=== PATIENT | male | born 1950 | race Caucasian/White ===

== ENCOUNTER 2017-08-22 22:18 | Inpatient (IN) ==
[2017-08-23] MEDS ORDERED: Naloxone 0.4 MG/ML INJ IVP PRN ×2 (01:33→20:30)
[2017-08-23] MEDS ORDERED: *HR* Morphine 2 MG/ML SYRINGE IVP PRN ×2 (02:01→20:30)
--- NOTE | 2017-08-23 02:05 | Internal Med History&Physical ---
Date of Encounter: 08/23/17 Time of Encounter: 02:00 Assessment and Plan (1) Fracture of femoral neck, right Current visit: No Status: Acute Consult to Ortho in AM for likely R hemiarthroplasty as add-on pt. Consult to PT/OT. Pre-op risk stratification: Low risk patient. Anesthesia may note cervical disc fusion history though patient exhibits good extension/flexion. VSS, stable H&H. 12 lead ordered. NPO. Maintenance fluids. Pain management. Qualifiers: Encounter type: initial encounter Fracture type: closed Qualified Code(s) : S72.001A - Fracture of unspecified part of neck of right femur, initial encounter for closed fracture (2) DVT prophylaxis Current visit: Yes Status: Acute Intermittent pneumatic compression, pre-op. Internal Medicine - H&P: HPI Chief complaint: R hip pain Admitted From: Emergency Dept Plans for Post Hospital Care: Transfer Detention Facility History of present illness: Mr. Atwood is a 67 year old male, PMH c3-c6 fusion, bilateral knee replacement, no cardiac/stroke history, presents to ED evening 08/22 after fall on R hip on concrete after friend tripped him. Patient comes from outpatient where XR performed, showing R femoral neck fracture. Denies loss of consciousness, contusion of other body parts. No active bleed. Reports severe pain in R hip. No n/v, chest pain, shortness of breath. 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 Past Med Surg Social Fam HX - Past Medical History Medical history: arthritis, hyperlipidemia, hypertension Psychiatric history: no psych history - Social History Smoking Status: Never smoker Smokeless Tobacco Status: No Alcohol use: occasionally Drug use: none - Family History Father Living Status: Cause of : CHF Hx Family Cardiac Disorders: Yes (CHF) Mother Living Status: Hx Family Cancer: Yes (Lung cancer) Internal Medicine - H&P: Meds Mv-Mn/FA/Lycopene/Lut/Hb#178 [Bertrand Multivit For Men Caplet] 1 each PO DAILY 09/18 [History] [place]-3/Dha/Epa/Fish Oil [Fish Oil 1,000 mg Softgel] 1,000 mg PO DAILY 10/03/16 [History] 3 Allergy/AdvReac Type Severity Reaction Status Date / Time shellfish derived Allergy Anaphylaxis Verified 08/22/17 21:27 All Systems PM: A 10-system review of systems was performed and is negative for pertinent findings except as documented above in the HPI. - Constitutional Vitals: Temp Pulse Resp BP Pulse Ox 97.6 F 77 16 158/83 92 08/23/17 00:41 08/23/17 00:41 08/23/17 00:41 08/23/17 00:41 08/23/17 00:41 General appearance: Present: mild distress, A&O X 3 - Head Head exam: Present: atraumatic, normal inspection - Eye Eye exam: Present: EOMI, normal appearance - Neck Additional comments: s/p cervical fusion; no observed limitation to active ROM in flexion and extension - Respiratory Respiratory exam: Present: CTAB - Cardiovascular Cardiovascular exam: Present: RRR, +S1, +S2 - Extremities Exam Additional comments: anatomic short leg R; decreased ROM 2/2 pain/fracture, normal dorsalis pedis pulse bilaterally, no paresthesias distally Internal Med - H&P Results - Labs CBC & Chem 7: 08/23/17 01:48 - VTE Reasons for not Prescribing Prophylaxis: Medical contraindication
[2017-08-23] MEDS ORDERED: Acetaminophen 325 MG TABLET PO PRN ×2 (02:14→20:30)
[2017-08-23] MEDS ORDERED: Ondansetron ODT 4 MG TAB.RAPDIS SL PRN ×2 (02:14→20:30)
[2017-08-23] MEDS ORDERED: Ibuprofen 400 MG TABLET PO PRN ×2 (02:14→20:30)
[2017-08-23 03:06] LABS: BUN/Creatinine Ratio 19 (6-26); Blood Urea Nitrogen 20 mg/dL (8-23); Calcium 8.8 mg/dL (8.6-10.3); Carbon Dioxide 26 mEq/L (23-29); Chloride 106 mEq/L (98-107); Glucose 96 mg/dL (70-105); Osmolality,Calculated 290 (280-300); Potassium 3.7 mEq/L (3.5-5.1); Sodium 139 mEq/L (136-145); eGFR For African Americans > 60 (> 60); eGFR For Non-African Americans > 60 (> 60)
[2017-08-23 04:32] LABS: Basophils % 0.3 %; Eosinophils # 0.2 K/mcL (0.0-0.6); Eosinophils % 1.6 %; Hematocrit 42.8 % (37.5-50.1); Hemoglobin 14.5 g/dL (12.9-16.9); Immature Granulocytes % 0.5 % (0-4); Lymphocytes # 1.1 K/mcL (0.6-4.6); Lymphocytes % 11.5 %; Mean Corpuscular HGB Conc 33.9 g/dL (31.6-35.5); Mean Corpuscular Hemoglobin 29.2 pg (28.0-33.3); Mean Corpuscular Volume 86.3 fL (83.0-100.0); Mean Platelet Volume 10.4 fL (9.4-12.4); Monocytes # 0.7 K/mcL (0.0-1.3); Monocytes % 7.5 %; Neutrophils # 7.6 K/mcL (1.6-8.9); Platelet Count 167 K/mcL (140-400); Red Blood Count 4.96 M/mcL (4.19-5.50); Red Cell Distribution Width 12.4 % (11.5-14.5); Segmented Neutrophils % 78.6 %
[2017-08-23] MEDS: 0.9 % Sodium Chloride 1,000 ML IVC SCH ×3 (05:21→22:39)
[2017-08-23] MEDS: *HR* HYDROmorphone (PF) 1 MG/ML SYRINGE IVP PRN ×3 (05:29→14:08)
--- NOTE | 2017-08-23 08:12 | Orthopedic Consult Note ---
Date of Encounter: 08/23/17 Time of Encounter: 08:09 History of Present Illness HPI: Mr. Atwood is a 67 year old male Status post injury to right hip yesterday while sparring. Patient was seen [facility] x-rays showed a displaced femoral neck fracture.The patient was transferred to [facility] For treatment He denies head trauma or loss of consciousness. 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 Patient is very active. Physical exam Alert and oriented 3 Right lower extremity Neurovascular intact Shortened external rotated X-rays show displaced right femoral neck fracture. Based on the patient's age and activity level recommendation is for a right total hip replacement versus a hemiarthroplasty. This was discussed at length with the patient as well as the surgical approach. This will be robotic- assisted the patient will have a CT scan this morning preop planning. Risks and benefits as well as recovery were discussed with the patient. Past Med Surg Social Fam HX - Past Medical History Medical history: arthritis, hyperlipidemia, hypertension Psychiatric history: no psych history - Social History Smoking Status: Never smoker Smokeless Tobacco Status: No Alcohol use: occasionally Drug use: none - Family History Father Living Status: Cause of : CHF Hx Family Cardiac Disorders: Yes (CHF) Mother Living Status: Hx Family Cancer: Yes (Lung cancer) Medications and Allergies Mv-Mn/FA/Lycopene/Lut/Hb#178 [Bertrand Multivit For Men Caplet] 1 each PO DAILY 09/18 [History] [place]-3/Dha/Epa/Fish Oil [Fish Oil 1,000 mg Softgel] 1,000 mg PO DAILY 10/03/16 [History] 3 Allergy/AdvReac Type Severity Reaction Status Date / Time shellfish derived Allergy Anaphylaxis Verified 08/22/17 21:27 All Systems Reviewed: A 10-system review of systems was performed and is negative for pertinent findings except as documented above in the HPI. Physical Exam - Constitutional Vitals: Temp Pulse Resp BP Pulse Ox 97.6 F 77 16 158/83 92 08/23/17 00:41 08/23/17 00:41 08/23/17 00:41 08/23/17 00:41 08/23/17 00:41 Results - Labs Result Diagrams: 08/23/17 04:13 08/23/17 01:48 Labs: H & H 08/23/17 Range/Units 04:13 Hgb 14.5 (12.9-16.9) g/dL Hct 42.8 (37.5-50.1) % All other labs normal. Consult Discharge Plan - Plan Referrals: Clarisa Torres CNP [Primary Care Provider] -
--- NOTE | 2017-08-23 14:43 | Event Note ---
Date of Encounter: 08/23/17 Time of Encounter: 14:41 67/male Past medical history of for cervical spine fusion, bilateral knee replacement, No cardiac history/no pulmonary history. Came to emergency room on 08/22 with the fall. Right femoral neck fracture. Admitted to hospitalist service. Orthopedics on the board. Plan: I was told that patient will be going for surgery tomorrow. We will follow the recommendations from orthopedics.
[2017-08-23] MEDS ORDERED: *HR* HYDROmorphone (PF) 1 MG/ML SYRINGE IVP ONE (14:50)
--- NOTE | 2017-08-23 16:30 | Anesthesia Evaluation PreOp ---
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 Significant HX Other Medical History: Denies Any Significant HX Anesthesia History: No Prior Anesthetic Complications, Past Anesthesia (C3-6 fusion) Alcohol Use: occasionally Drug use: none Medications and Allergies Mv-Mn/FA/Lycopene/Lut/Hb#178 [Bertrand Multivit For Men Caplet] 1 each PO DAILY 09/18 [History] [place]-3/Dha/Epa/Fish Oil [Fish Oil 1,000 mg Softgel] 1,000 mg PO DAILY 10/03/16 [History] 3 Allergy/AdvReac Type Severity Reaction Status Date / Time shellfish derived Allergy Anaphylaxis Verified 08/22/17 21:27 - Meds/Allergy Pre-op Review Medications Reviewed: Yes Allergies Reviewed: Yes Beta Blockers on Current Med List: No Anesthesia Results - Labs 08/23/17 04:13 08/23/17 01:48 Anesthesia Exam Vital Signs/O2 Sat, Most Current Temp Pulse Resp BP Pulse Ox 99.9 F H 71 18 147/84 93 08/23/17 15:13 08/23/17 15:13 08/23/17 15:13 08/23/17 15:13 08/23/17 15:13 Height: 6'/1.83 m Weight: 224 lbs/101.6 kg NPO (# of Hours): 8 Pain Scale: 0 Pain Scale Used: Numeric (1 - 10) - HEENT Pupil (Motor): EOMI Mallampati: II Teeth: Normal, Missing Oral Opening: Greater than 3 - OUTSIDE INSTALLER APPRENTICE LOC: Oriented OUTSIDE INSTALLER APPRENTICE Motor: Normal RUE, Normal LUE, Normal RLE, Normal LLE, Normal Face OUTSIDE INSTALLER APPRENTICE Sensory: Normal: RUE, LUE, RLE, LLE, Face - Cardiac Rhythm: Regular Murmur: None - Pulmonary Breath Sounds: bilateral Clear Respiratory Effort: Symmetrical Anesthesia Assess/Plan ASA Score: 2 Modified Palmer Scale for Level of Consciousness: Cooperative, oriented, and tranquil Anesthetic Plan: General Monitoring Plan: Standard Monitors Recovery Plan: PACU
[2017-08-23] MEDS ORDERED: *HR* FentaNYL (PF) 100 MCG/2 ML VIAL ONE ×2 (17:43→18:21)
[2017-08-23] MEDS ORDERED: *HR* Midazolam HCl 2 MG/2 ML VIAL ONE (17:44)
[2017-08-23] MEDS ORDERED: *HR* Propofol 200 MG/20 ML VIAL IVP ONE (17:44)
[2017-08-23] MEDS ORDERED: Ethanol\\Acetic Acid\\Na Ace\\Ben 1,000 ML IRRIG.SOLN IR ONE (17:45)
[2017-08-23] MEDS ORDERED: Ketorolac 30 MG/ML VIAL ONE (17:47)
[2017-08-23] MEDS ORDERED: Dexamethasone 4 MG/ML VIAL ONE (17:47)
[2017-08-23] MEDS ORDERED: *HR* Succinylcholine 200 MG/10 ML VIAL IVP ONE (17:47)
[2017-08-23] MEDS ORDERED: *HR* Rocuronium Bromide 50 MG/5 ML VIAL ONE (17:47)
[2017-08-23] MEDS ORDERED: Lidocaine -MPF 2% 2 ML VIAL ONE (17:47)
[2017-08-23] MEDS ORDERED: Ondansetron 4 MG/2 ML VIAL ONE (17:47)
[2017-08-23] MEDS ORDERED: EPHEDrine 50 MG/ML VIAL ONE (18:08)
[2017-08-23] MEDS ORDERED: *HR* HYDROmorphone (PF) 1 MG/ML SYRINGE IVP PRN ×2 (18:24→20:30)
[2017-08-23] MEDS ORDERED: Ondansetron 4 MG/2 ML VIAL IVP ONE (18:24)
--- NOTE | 2017-08-23 19:16 | Orthopedic Operative Note ---
Date of procedure: 08/23/17 Pre-op diagnosis: Displaced right femoral neck fracture Post-op diagnosis: same Procedure: Procedure: Right Total Hip Replacment robotic-assisted Estimated blood loss: 200 cc Hardware: Metal and polyethylene replacement. [employer] DM Cup: 56 cup Femoral size stem 11 Head: 0 head with Jaci Procedural Notes: Displaced femoral neck fracture. Operative procedure: The patient was brought to the operating room and placed on the operating room table. After general anesthesia was administered the patient was placed in the lateral decubitus position with the operative leg up. All pressure points were padded appropriately and the head was stabilized in the neutral position. The operative extremity was prepped and draped in the sterile surgical fashion patient received IV antibiotic prior to skin incision. 3 Steinmann pins were placed in the iliac crest 3 cm proximal to the anterior superior iliac spine this was for the robotic-assisted sensor. This was done through a small 2 cm incision. A standard posterior approach is made to the operative hip, the incision was made through the skin and subcutaneous tissue hemostasis was obtained with Bovie cautery. Using careful sharp dissection the fascia was identified and incised exposing the external rotators. The femoral checkpoint was placed leg length was measured at this time utilizing robotic assistance. The external rotators were released off the greater trochanter and tagged with # 2 FiberWire suture. The capsule was T'd open and the hip was brought into internal rotation. Patient had a displaced femoral neck fracture. The femoral head was removed and neck cut was made approximately 2 mm below the fracture line. An anterior capsulotomy was performed for the anterior retractor. Soft tissues removed from the acetabulum. The acetabulum checkpoint was placed confirmed. The acetabulum was then mapped with robotic assistance. Based on the preoperative plan the acetabulum was reamed in one step with a 55 reamer. The 56 acetabulum was impacted with robotic assistance and 42 degrees of abduction and 19 degrees of anteversion. The hip was brought back in to internal rotation and prepared with the box stamper followed by the canal finder followed by the reaming process to a size 11 /12 broaching process in 20 degrees anteversion. It was broached up to the appropriate size 11. Trial reduction revealed leg lengths close to normal. The femoral implant was impacted in place in 20 degrees of anteversion. Trial reduction found the hip to be stable with 0 head and Jaci. The trials were removed and the real implants were impacted in place. The hip was reduced, patient had robotic confirmed leg length of 3 mm longer than the contralateral side. The hip had excellent stability with forward flexion to 90 degrees adduction of 30 degrees and internal rotation of 60 degrees. The hip had no shuck. The hips after 2 minutes with a Betadine saline solution. It was irrigated out with 2 L of pulse irrigation. The checkpoints were removed, Steinmann pins were removed. The deep tissue was irrigated and closed deep with #1 PDS suture superficially with 0 PDS suture and skin was closed with Dermabond and zip tie. The patient was placed in a sterile dressing and abduction pillow. The patient was extubated and transferred to the recovery room in stable condition. Anesthesia: GETA Surgeon: Anthony Cheng Condition: stable Disposition: PACU
[2017-08-23] MEDS ORDERED: *HR* HYDROmorphone 2 MG/ML SYRINGE ONE (19:17)
[2017-08-23 19:48] LABS: Hemoglobin 13.7 g/dL (12.9-16.9)
--- NOTE | 2017-08-23 20:01 | Anesthesia Evaluation Post Op ---
Date of Encounter: 08/23/17 Time of Encounter: 20:01 - Vital Signs Vital Signs: vss - Lungs Lungs: Clear Ascult./Percussion - Airway Airway: Non-obstructed - Cardiovascular Baseline Rhythm - Mental Status Mental Status: Asleep with brisk response to light stimulation - Pain Pain Scale used: Rossy (Faces) - Nausea Vomiting Nausea Vomiting: Not Present - Hydration Hydration: Ice chips - Discharge PostOp Status: Transfer Patient to floor
[2017-08-23] MEDS ORDERED: *HR* OxyCODONE Immed Rel 5 MG TABLET PO PRN (20:30)
[2017-08-23] MEDS ORDERED: MOM Conc 10 ML UD.LIQ PO PRN (20:30)
[2017-08-23] MEDS ORDERED: Sennosides 8.6 MG TABLET PO PRN (20:30)
[2017-08-23] MEDS ORDERED: Ondansetron 4 MG/2 ML VIAL IVP PRN (20:30)
[2017-08-23] MEDS ORDERED: Temazepam 15 MG CAPSULE PO PRN (20:30)
[2017-08-23] MEDS: CeFAZolin Premix DUPLEX 2,000 MG/50 ML BAG IVPB SCH (23:57)
[2017-08-24 01:36] LABS: Hematocrit 37.5 % (37.5-50.1); Hemoglobin 12.7 g/dL (12.9-16.9)
[2017-08-24 01:55] LABS: BUN/Creatinine Ratio 17 (6-26); Blood Urea Nitrogen 22 mg/dL (8-23); Calcium 8.2 mg/dL (8.6-10.3); Carbon Dioxide 27 mEq/L (23-29); Chloride 104 mEq/L (98-107); Glucose 179 mg/dL (70-105); Osmolality,Calculated 290 (280-300); Potassium 3.9 mEq/L (3.5-5.1); Sodium 136 mEq/L (136-145); eGFR For African Americans > 60 (> 60); eGFR For Non-African Americans 56 (> 60)
[2017-08-24] MEDS: 0.9 % Sodium Chloride 1,000 ML IVC SCH ×2 (06:13→17:38)
--- NOTE | 2017-08-24 06:46 | Orthopedics Progress Note ---
Date of Encounter: 08/24/17 Time of Encounter: 06:45 Subjective Interval history: Patient was seen this morning doing well without complaints. Afebrile vital signs stable. Operative extremity: Neurovascularly intact Dressing clean dry and intact Calves nontender Assessment and plan: Continue with postoperative care Hematocrit 37 Objective Vital signs: Vital Signs Temp Pulse Resp BP Pulse Ox 08/24/17 05:25 99.1 F 79 14 117/69 97 08/24/17 00:02 98.5 F 86 16 113/77 95 08/23/17 22:30 98.2 F 83 20 117/79 93 08/23/17 21:30 98.2 F 89 18 117/79 95 08/23/17 21:00 99.2 F 84 18 127/76 95 08/23/17 20:30 98.7 F 85 16 112/79 94 08/23/17 19:56 100 F H 87 14 122/76 96 08/23/17 19:46 89 14 132/78 96 08/23/17 19:35 92 14 117/78 96 08/23/17 19:25 100 F H 91 16 127/69 95 08/23/17 15:13 99.9 F H 71 18 147/84 93 08/23/17 12:20 97.9 F 76 16 154/81 94 08/23/17 08:51 98.8 F 75 16 124/71 94 Intake and Output 08/23/17 08/23/17 08/24/17 15:59 23:59 07:59 Intake Total 1000 / 1000 1050 / 1050 Output Total 400 / 400 200 / 200 300 / 300 Balance 600 / 600 -200 / -200 750 / 750 Intake: IV Fluids 1000 / 1000 1050 / 1050 0.9 % Sodium Chloride 1,000 ML 1000 / 1000 1000 / 1000 @ 125 mls/hr IVC .Q8H ROMANA Rx#: [id number] Ancef Premix DUPLEX 2,000 mg In 50 / 50 50 ml @ 100 mls/hr IVPB Q8HR ROMANA Rx#:[id number] Oral 0 / 0 Output: Urine 400 / 400 300 / 300 Estimated Blood Loss 200 / 200 Other: Meal NPO Percent of Meal Consumed 0% - Labs CBC & BMP: 08/24/17 00:53 08/24/17 00:53 Labs: Abnormal lab results Hgb 12.7 g/dL (12.9-16.9) L 08/24/17 00:53 Est GFR (Non-Af Amer) 56 (> 60) L 08/24/17 00:53 Glucose 179 mg/dL (70-105) H 08/24/17 00:53 Calcium 8.2 mg/dL (8.6-10.3) L 08/24/17 00:53 - VTE Reasons for not Prescribing Prophylaxis: Medical contraindication Documentation of Mechanical Device: Intermittent pneumatic compression device Consult Discharge Plan - Plan Referrals: Clarisa Torres, TU[employer] P[employer]ER [Primary Care Provider] -
[2017-08-24] MEDS: Ascorbic Acid 500 MG TABLET PO SCH ×2 (08:35→17:36)
[2017-08-24] MEDS: CeFAZolin Premix DUPLEX 2,000 MG/50 ML BAG IVPB SCH (08:36)
[2017-08-24] MEDS: Multivit/Ca/Min/Fe/FA 1 TAB TABLET PO SCH (08:36)
[2017-08-24] MEDS: *HR* OxyCODONE Immed Rel 5 MG TABLET PO PRN ×3 (08:36→17:36)
[2017-08-24] MEDS: Ringers Solution, Lactated 1,000 ML IVC SCH (08:37)
--- NOTE | 2017-08-24 13:59 | Internal Med Progress Note ---
Date of Encounter: 08/25/17 Time of Encounter: 13:57 - Assessment and plan (1) Fracture of femoral neck, right Current Visit: No Status: Acute Assessment and plan: 67/male right femur neck fracture. Postoperative day one. Patient tolerated surgery/postoperative course very well so far. Bilateral pulses intact. Bilateral sensation intact. Bilateral calves nontender. No bloodstained dressing. Plan: We will follow the recommendations from the orthopedics. Qualifiers: Encounter type: subsequent encounter Fracture type: closed Fracture healing: with routine healing Qualified Code(s): S72.001D - Fracture of unspecified part of neck of right femur, subsequent encounter for closed fracture with routine healing (2) DVT prophylaxis Current Visit: Yes Status: Acute - Subjective Interval history: Patient seen and examined. Chart reviewed. Patient is comfortably sitting up in a chair. 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 Patient tells me that he is occasionally in pain but pain is tolerable. Patient is keen to go home tomorrow. - Constitutional Vitals: Temp Pulse Resp BP Pulse Ox 98.8 F 84 18 128/67 94 08/24/17 11:55 08/24/17 11:55 08/24/17 11:55 08/24/17 11:55 08/24/17 08:08 General appearance: Present: mild distress, A&O X 3 - Head Head exam: Present: atraumatic, normocephalic - Eye Eye exam: Present: PERRL, conjuntiva pink, sclera anicteric Pupils: Present: PERRL - Neck Neck exam general surgery: Present: supple, trachea midline. Absent: lymphadenopathy - Respiratory Respiratory exam: Present: CTAB. Absent: accessory muscle use, rales, rhonchi, wheezes - Cardiovascular Cardiovascular exam: Present: RRR, +S1, +S2. Absent: diastolic murmur, gallop, rubs, systolic murmur - GI/Abdominal GI/Abdominal exam: Present: normal bowel sounds, soft, no peritoneal signs. Absent: distended, tenderness - Extremities Exam Extremities exam: Present: warm, radial pulses palpable and symmetrical. Absent : calf tenderness, cyanotic, pedal edema - Neurological Exam Neurological exam: Present: CN II-XII intact, oriented X3, no focal deficits. 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 D/ / Bryn White MD / Bryn White MD Interpreting Provider: Bryn White MD - VTE Reasons for not Prescribing Prophylaxis: Medical contraindication Documentation of Mechanical Device: Intermittent pneumatic compression device Consult Discharge Plan - Plan Referrals: Clarisa Torres CNP [Primary Care Provider] - Prescriptions: OxyCODONE Immed Rel [Roxicodone 5 MG] 5 mg PO Q4HR PRN #24 tablet PRN Reason: Pain Aspirin Enteric Coated [Aspirin EC] 325 mg PO BID #20 tablet.
[2017-08-25] MEDS: *HR* OxyCODONE Immed Rel 5 MG TABLET PO PRN ×2 (01:16→12:34)
[2017-08-25 01:25] LABS: Basophils % 0.2 %; Eosinophils # 0.1 K/mcL (0.0-0.6); Eosinophils % 0.8 %; Hematocrit 29.7 % (37.5-50.1); Immature Granulocytes % 0.4 % (0-4); Lymphocytes # 1.2 K/mcL (0.6-4.6); Lymphocytes % 13.2 %; Mean Corpuscular HGB Conc 34.7 g/dL (31.6-35.5); Mean Corpuscular Hemoglobin 30.1 pg (28.0-33.3); Mean Corpuscular Volume 86.8 fL (83.0-100.0); Mean Platelet Volume 10.4 fL (9.4-12.4); Monocytes # 1.1 K/mcL (0.0-1.3); Monocytes % 11.6 %; Neutrophils # 6.7 K/mcL (1.6-8.9); Platelet Count 135 K/mcL (140-400); Red Blood Count 3.42 M/mcL (4.19-5.50); Red Cell Distribution Width 12.4 % (11.5-14.5); Segmented Neutrophils % 73.8 %
[2017-08-25 01:43] LABS: Alanine Aminotransferase 20 Units/L (7-52); Albumin 3.3 g/dL (3.5-5.7); Albumin/Globulin Ratio 1.4 (1.1-2.2); Alkaline Phosphatase 44 Units/L (34-104); Aspartate Amino Transferase 49 Units/L (13-39); BUN/Creatinine Ratio 18 (6-26); Blood Urea Nitrogen 18 mg/dL (8-23); Calcium 7.9 mg/dL (8.6-10.3); Carbon Dioxide 26 mEq/L (23-29); Chloride 103 mEq/L (98-107); Globulin 2.3 g/dL (2.4-3.5); Glucose 135 mg/dL (70-105); Osmolality,Calculated 282 (280-300); Potassium 3.8 mEq/L (3.5-5.1); Sodium 134 mEq/L (136-145); Total Protein 5.6 g/dL (6.4-8.9); eGFR For African Americans > 60 (> 60); eGFR For Non-African Americans > 60 (> 60)
[2017-08-25 02:18] LABS: Hemoglobin 10.3 g/dL (12.9-16.9)
[2017-08-25] MEDS ORDERED: Multivit/Ca/Min/Fe/FA 1 TAB TABLET PO SCH (09:00)
[2017-08-25] MEDS ORDERED: (Omega-3/Dha/Epa/Fish Oil [Fish Oil 1,000 Mg Softgel]) PO SCH (09:00)
[2017-08-25] MEDS: Multivit/Ca/Min/Fe/FA 1 TAB TABLET PO SCH (10:23)
[2017-08-25] MEDS: Ascorbic Acid 500 MG TABLET PO SCH (10:23)
--- NOTE | 2017-08-25 10:31 | Discharge Summary ---
Date of Encounter: 08/26/17 Time of Encounter: 10:27 - Discharge Diagnosis (1) Fracture of femoral neck, right Priority: Primary Status: Acute Qualifiers: Encounter type: subsequent encounter Fracture type: closed Fracture healing: with routine healing Qualified Code(s): S72.001D - Fracture of unspecified part of neck of right femur, subsequent encounter for closed fracture with routine healing (2) DVT prophylaxis Priority: Secondary Status: Acute - Discharge Medications Prescriptions: OxyCODONE Immed Rel [Roxicodone 5 MG] 5 mg PO Q4HR PRN #24 tablet PRN Reason: Pain Aspirin Enteric Coated [Aspirin EC] 325 mg PO BID #20 tablet. Home Medications: Mv-Mn/FA/Lycopene/Lut/Hb#178 [Bertrand Multivit For Men Caplet] 1 each PO DAILY 09/18 [History] [place]-3/Dha/Epa/Fish Oil [Fish Oil 1,000 mg Softgel] 1,000 mg PO DAILY 10/03/16 [History] Aspirin Enteric Coated [Aspirin EC] 325 mg PO BID #20 tablet. 08/24/17 [Rx] OxyCODONE Immed Rel [Roxicodone 5 MG] 5 mg PO Q4HR PRN #24 tablet 08/24/17 [Rx] Allergies/Adverse Reactions: 3 Allergy/AdvReac Type Severity Reaction Status Date / Time shellfish derived Allergy Anaphylaxis Verified 08/22/17 21:27 Procedures/tests Complete & Pending: Procedures Performed prior 72 hours Category Date Time Status CT FLORES hip rt wo con [CT] Stat Exams 08/23/17 08:46 Draft ECG 12 lead ECG [ECG] Routine Y 08/23/17 02:11 Stop Req Date of admission: 08/23/17 05:46 Primary care physician: Clarisa Torres CNP Consults: 08/23/17 02:16 Consult to Occupational Therapy [CONS] Routine Comment: Evaluate, develop and implement POC Reason for Consult: R hip fx Consult to Physical Therapy [CONS] Routine Comment: Evaluate, develop and implement POC Reason for Consult: R hip fx 08/23/17 03:15 Consult to Orthopedic Surgery [CONS] Routine Consulting Provider: Orthopedics [facility] Reason for Consult: R hip fracture Call Completed: No 08/23/17 20:30 Consult to Nurse Navigator [CONS] Routine Comment: ortho navigator Consult to Occupational Therapy [CONS] Routine Comment: Evaluate, develop and implement POC Reason for Consult: total hip replacement Consult to Physical Therapy [CONS] Routine Comment: Evaluate, develop and implement POC Reason for Consult: total hip replacement Consult to Station Superintendent [CONS] Routine Reason for SW Consult: post op joint replacement RT Post Op Consult [CONS] Routine Discharging clinician: Darren Reynolds - Patient Status Disposition: Home, Self-Care Condition: Good Functional capacity at discharge: uses cane/walker Overall status at discharge: patient is progressing back to baseline - Discharge Instructions Follow Up With: Clarisa Torres CNP [Primary Care Provider] - Anthony Cheng MD [Partnered Physician] - Additional Instructions: Discharge Instructions: Total Hip Replacement Please call [facility] ([phone]), your Primary Care Physician, or report to the Emergency Room if you have any of the following symptoms: Nausea, vomiting, fever greater that 101.5, swelling, chest pain, shortness of breath, increased pain/redness/drainage/odor for your incision site, numbness/ tingling, or any other concerning symptoms. ACTIVITY:Weight-bearing as tolerated for 8 weeks with hip dislocation precautions that physical therapy taught you. You may progress as tolerated under the guidance of your physical therapist. You do not need to sleep with a pillow between your legs. You can also seep on the operative side or on your stomach. MEDICATIONS: Upon discharge resume your home medications. Take all the medications as prescribed. Take a stool softener if taking narcotic pain medications. Stool softeners are only effective if you drink enough fluids. Drink 6-8 glass of water or fluids a day, unless this is not allowed for another health problem. Despite using stool softeners, if you haven't had a bowel movement in 3 days, please switch to a gentle laxative. Gentle laxatives are sold over the counter. You should have a bowel movement within 24 hours, if not call the office. You will be discharged from the hospital with a prescription for pain medication. You are encouraged to decrease the use of narcotic pain medication as tolerated. Should you require a refill, please call the office. [facility] prescribes narcotic pain medication for only 4-6 weeks after surgery. If you require pain medication beyond this time period, you may be referred to your Primary Care Physician or to the Pain Clinic for further evaluation. Plan ahead for refills on pain medication as many narcotics either need to be picked up at the office or mailed. It is best to call 48-72 hours in advance of needing a prescription refill so you don't run out of medication. To help control the post-operative pain, you may take NSAIDs (Aleve,Advil, Motrin, ibuprofen, naprosyn) or Tylenol as prescribed on the bottle in addition to the pain medication. ANTICOAGULATION (blood thinners): Continue your Aspirin, Lovenox or Coumadin as prescribed to help prevent a blood clot in the leg or in the lungs. As long as your incision remains dry and you tolerate the NSAIDs (Aleve, Advil, Motrin, Ibuprofen, Naprosyn), it is OK to use the NSAIDS while you are taking your anticoagulation medication. Should your incision start to drain, stop the NSAID and contact our office. Common symptoms of blood clot in the legs include: localized pain, swelling, calf tenderness, redness or discoloration of the skin. Blood clot in the lung symptoms include: shortness of breath, rapid pulse, sweating, and chest pain that worsens with deep breathing, coughing up blood, lightheadedness, feelings of anxiety. If you experience any of these symptoms notify your physician immediately, go to the emergency room, or if having trouble breathing, call 911. WOUND CARE: Leave the dressing on for 7 to 10days. You may change the dressing if it is saturated greater than 50%. Do not get the dressing wet at anytime. Wash your hands with antibacterial soap, rinse and dry prior to any wound care. If you have willy the visiting nurse or rehab facility can remove the stapes 10-14 days after surgery and place steri-strips across the wound. Leave the steri-strips in place until they fall off on their own. You may let water from the shower run on top of the steri-strips. If you do not have a visiting nurse or rehab facility, you will need to return to the office at 10-14 days for the willy to be removed. If you have itching or redness around the dressing call the office. FOLLOW-UP: Please follow up with your surgeon in the orthopedic clinic in 6 weeks from the day of surgery. If you have willy that need to be removed, you will need to come back to the office in 10-14 days from the day of surgery. - Diet and Activity Activity: as per physical therapy Diet: low fat, low cholesterol, low salt diet Interval History: Mr. Atwood is a 67 year old male, PMH c3-c6 fusion, bilateral knee replacement, no cardiac/stroke history, presents to ED evening 08/22 after fall on R hip on concrete after friend tripped him. Patient comes from outpatient where XR performed, showing R femoral neck fracture.Denies loss of consciousness, contusion of other body parts. No active bleed. Reports severe pain in R hip. 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 Hospital course: Patient was hospitalized. Orthopedics were consulted. Patient underwent a right hip surgery. Patient tolerated surgery and post surgical recovery extremely well. Patient was seen by orthopedic surgeon postoperatively on the Day1 and Day2. As per orthopedic surgery patient can go home today. DVT prophylaxis as prescribed by orthopedics. Follow-up appointment with primary care in 1-2 weeks. Follow-up appointment with orthopedics at [place] in one to 2 weeks. Plan of care discussed with the patient he verbalized understanding. At the time of discharge patient does not have any questions, concerns, update or recommendations. - Time Spent with Patient Total time spent providing and/or coordinating discharge services: - Constitutional Vitals: Temp Pulse Resp BP Pulse Ox 99.8 F H 96 18 133/68 97 08/24/17 23:56 08/24/17 23:56 08/24/17 23:56 08/24/17 23:56 08/24/17 23:56 General appearance: Present: mild distress, A&O X 3 - Head Head exam: Present: atraumatic, normocephalic - Eye Eye exam: Present: PERRL, conjuntiva pink, sclera anicteric Pupils: Present: PERRL - Neck Neck exam general surgery: Present: supple, trachea midline. Absent: lymphadenopathy - Respiratory Respiratory exam: Present: CTAB. Absent: accessory muscle use, rales, rhonchi, wheezes - Cardiovascular Cardiovascular exam: Present: RRR, +S1, +S2. Absent: diastolic murmur, gallop, rubs, systolic murmur - GI/Abdominal GI/Abdominal exam: Present: normal bowel sounds, soft, no peritoneal signs. Absent: distended, tenderness - Extremities Exam Extremities exam: Present: warm, radial pulses palpable and symmetrical. Absent : calf tenderness, cyanotic, pedal edema - Neurological Exam Neurological exam: Present: CN II-XII intact, oriented X3, no focal deficits. Absent: pronater drift, facial droop, speech deficit - Skin Skin exam: Present: dry, intact - VTE Reasons for not Prescribing Prophylaxis: Medical contraindication Documentation of Mechanical Device: Intermittent pneumatic compression device
--- NOTE | 2017-08-25 11:08 | Orthopedics Progress Note ---
Date of Encounter: 08/25/17 Time of Encounter: 07:00 Subjective Interval history: Patient was seen this morning doing well without complaints. Afebrile vital signs stable. Operative extremity: Neurovascularly intact wound with some bloody drainage, willy added with new dressing Calves nontender Assessment and plan: Continue with postoperative care Hematocrit 29, stable for DC Objective Vital signs: Vital Signs Temp Pulse Resp BP Pulse Ox 08/24/17 23:56 99.8 F H 96 18 133/68 97 08/24/17 19:54 100.1 F H 94 18 145/72 96 08/24/17 16:20 100.3 F H 94 14 114/73 90 08/24/17 11:55 98.8 F 84 18 128/67 Intake and Output 08/24/17 08/25/17 08/25/17 23:59 07:59 15:59 Intake Total 1800 / 1800 Output Total 250 / 250 Balance 1550 / 1550 Intake: Oral 1800 / 1800 Output: Urine 250 / 250 Other: Meal Dinner Percent of Meal Consumed 100% Weight 103.1 kg - Labs CBC & BMP: 08/25/17 01:07 08/25/17 01:07 Labs: Abnormal lab results RBC 3.42 M/mcL (4.19-5.50) L 08/25/17 01:07 Hgb 10.3 g/dL (12.9-16.9) L D 08/25/17 01:07 Hct 29.7 % (37.5-50.1) L 08/25/17 01:07 Plt Count 135 K/mcL (140-400) L 08/25/17 01:07 Sodium 134 mEq/L (136-145) L 08/25/17 01:07 Glucose 135 mg/dL (70-105) H 08/25/17 01:07 POC Glucose 127 (58-89) H 08/25/17 07:52 Calcium 7.9 mg/dL (8.6-10.3) L 08/25/17 01:07 AST 49 Units/L (13-39) H 08/25/17 01:07 Serum Total Protein 5.6 g/dL (6.4-8.9) L 08/25/17 01:07 Albumin 3.3 g/dL (3.5-5.7) L 08/25/17 01:07 Globulin 2.3 g/dL (2.4-3.5) L 08/25/17 01:07 - VTE Reasons for not Prescribing Prophylaxis: Medical contraindication Documentation of Mechanical Device: Intermittent pneumatic compression device Consult Discharge Plan - Plan Referrals: Anthony Cheng MD [Partnered Physician] - Clarisa Torres CNP [Primary Care Provider] - Prescriptions: Aspirin Enteric Coated [Aspirin EC] 325 mg PO BID #20 tablet.dr Ramos Immed Rel [Roxicodone 5 MG] 5 mg PO Q4HR PRN #24 tablet PRN Reason: Pain
[2017-08-25 11:49] VITALS: BP 155/84
--- NOTE | 2017-08-27 12:33 | Electrocardiograph Report ---
[place] [id number] Test Date: 2017-08-23 Pat Name: [place] 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
== END 2017-08-25 13:43 | disposition home or self-care (01) | DRG 470 ==
LOC: 3NENU
PROVIDERS: ADMIT Internal Medicine; ATTEND Internal Medicine

== ENCOUNTER 2017-09-29 13:16 | Inpatient (IN) ==
[2017-09-29] MEDS ORDERED: *HR* OxyCODONE Immed Rel 5 MG TABLET PO PRN (17:14)
[2017-09-29] MEDS ORDERED: Naloxone 0.4 MG/ML INJ IVP PRN (17:19)
[2017-09-29] MEDS ORDERED: *HR* Heparin 5,000 UNIT/ML VIAL SQ SCH (18:00)
--- NOTE | 2017-09-29 18:08 | Internal Med History&Physical ---
Date of Encounter: 09/29/17 Time of Encounter: 18:06 Assessment and Plan (1) Cellulitis Status: Acute Patient presents today with erythema, tenderness and induration and right hip incision site s/p surgical repair in August 2017 Since Saturday he experiencing fevers, chills, rigors as well as decreased range of motion and pain with range of motion He is being admitted to observation due to cellulitis surrounding the right hip surgical incision The patient is not septic; not meeting any SIRS criteria. -Start broad-spectrum antibiotics vancomycin and Zosyn -Consult orthopedic surgery-dayshift team to call -pain management with roxicodone -Heparin 5000 units SC BID for DVT prophylaxis Qualifiers: Site of cellulitis: extremity Site of cellulitis of extremity: lower extremity Laterality: right Qualified Code(s): L03.115 - Cellulitis of right lower limb (2) DVT prophylaxis Current visit: Yes Status: Acute Heprin 5000 units SC BID Internal Medicine - H&P: HPI Chief complaint: redness, swelling and tenderness at Rt hip surgical site Admitted From: Home Plans for Post Hospital Care: Home History of present illness: Mr. Atwood is a 67 year old male with a past medical history of arthritis, HLD and HTN. He worsens to [facility] today from [facility] with concern for cellulitis of the right hip surgical incision. August 2017 the patient had a hip repair s/p fall while spurring resulting in a fracture. He reports that Saturday of this week he began noticing redness and swelling at the incision site. Additionally, he reports fevers, chills, rigors, decreased range of motion and pain with range of motion at the incision site. Review of his labs revealed leukocytosis. Past Med Surg Social Fam HX - Past Medical History Medical history: arthritis, hyperlipidemia, hypertension Psychiatric history: no psych history - Social History Smoking Status: Never smoker Smokeless Tobacco Status: No Alcohol use: occasionally Drug use: none - Family History Father Living Status: Hx Family Cardiac Disorders: Yes (CHF) Mother Living Status: Hx Family Cancer: Yes (Lung cancer) Internal Medicine - H&P: Meds Mv-Mn/FA/Lycopene/Lut/Hb#178 [Bertrand Multivit For Men Caplet] 1 each PO DAILY 09/18 [History] [place]-3/Dha/Epa/Fish Oil [Fish Oil 1,000 mg Softgel] 1,000 mg PO DAILY 10/03/16 [History] Aspirin Enteric Coated [Aspirin EC] 325 mg PO BID #20 tablet. 08/24/17 [Rx] OxyCODONE Immed Rel [Roxicodone 5 MG] 5 mg PO Q4HR PRN #24 tablet 08/24/17 [Rx] 3 Allergy/AdvReac Type Severity Reaction Status Date / Time shellfish derived Allergy Anaphylaxis Verified 08/22/17 21:27 All Systems PM: A 10-system review of systems was performed and is negative for pertinent findings except as documented above in the HPI. - Constitutional Constitutional: as per HPI - Cardiovascular Cardiovascular ROS IM: no chest pain, no diaphoresis, no dyspnea, no lightheadedness, no palpitations, no syncope - Respiratory Respiratory: no cough, no dyspnea, no wheezing, no excessive phlegm production - Gastrointestinal Gastrointestinal: no abdominal pain, no diarrhea, no hematemesis, no hematochezia, no melena, no nausea, no vomiting - Musculoskeletal Musculoskeletal ROS IM: stiffness, no joint swelling, no limited range of motion , no numbness, no tingling - Integumentary Integumentary IM: as per HPI - Neurological Neurological ROS: no confusion, no convulsions, no focal weakness, no numbness, no tingling, no tremor(s) - Constitutional Vitals: Temp Pulse Resp BP Pulse Ox 97.9 F 79 16 138/79 96 09/29/17 16:55 09/29/17 16:55 09/29/17 16:55 09/29/17 16:55 09/29/17 16:55 General appearance: Present: cooperative, A&O X 3, no acute distress, answers questions appropriately - Head Head exam: Present: atraumatic, normocephalic - Eye Eye exam: Present: PERRL - Respiratory Respiratory exam: Present: CTAB. Absent: accessory muscle use, rales, rhonchi, wheezes - Cardiovascular Cardiovascular exam: Present: RRR, +S1, +S2. Absent: diastolic murmur, gallop, rubs, systolic murmur - GI/Abdominal GI/Abdominal exam: Present: normal bowel sounds, soft, no peritoneal signs. Absent: distended, tenderness - Extremities Exam Extremities exam: Present: tenderness, warm, radial pulses palpable and symmetrical. Absent: calf tenderness, cyanotic, pedal edema - Incison Incision: Present: swollen, inflamed, clean and dry, erythema, indurated. Absent: draining, purulent - Neurological Exam Neurological exam: Present: CN II-XII intact, oriented X3, no focal deficits. Absent: pronater drift, facial droop, speech deficit - Skin Skin exam: Present: dry, intact - Expanded Skin Exam Full body front and back image: 1 - Surgical incision s/p right hip repair. Incision site is healing but erythematous, swollen and indurated. There is no drainage at the site
[2017-09-29] MEDS: *HR* OxyCODONE Immed Rel 5 MG TABLET PO PRN ×2 (18:47→22:50)
[2017-09-29] MEDS: Vancomycin 1,250 MG in D5% in Water 250 ML IVPB SCH (22:34)
[2017-09-30 02:58] LABS: Hematocrit 31.8 % (37.5-50.1); Hemoglobin 10.7 g/dL (12.9-16.9); Mean Corpuscular HGB Conc 33.6 g/dL (31.6-35.5); Mean Corpuscular Hemoglobin 29.2 pg (28.0-33.3); Mean Corpuscular Volume 86.6 fL (83.0-100.0); Mean Platelet Volume 10.2 fL (9.4-12.4); Platelet Count 229 K/mcL (140-400); Red Blood Count 3.67 M/mcL (4.19-5.50); Red Cell Distribution Width 13.1 % (11.5-14.5)
[2017-09-30] MEDS: Acetaminophen 325 MG TABLET PO PRN ×2 (03:55→15:46)
[2017-09-30] MEDS: *HR* OxyCODONE Immed Rel 5 MG TABLET PO PRN ×4 (04:03→20:13)
--- NOTE | 2017-09-30 06:54 | Orthopedic Consult Note ---
Date of Encounter: 09/30/17 Time of Encounter: 06:52 History of Present Illness HPI: Mr. Atwood is a 67 year old male Status post right total hip for fracture 1 month ago presented to [place] 5 day history of pain erythema. Physical exam Right lower extremity Hip incision clean dry and intact Erythema around the incision No drainage Neurovascular intact Patient with right hip cellulitis continue IV antibiotics for 24-48 hours we will reevaluate. In AM Past Med Surg Social Fam HX - Past Medical History Medical history: arthritis, hyperlipidemia, hypertension Psychiatric history: no psych history - Social History Smoking Status: Never smoker Smokeless Tobacco Status: No Alcohol use: occasionally Drug use: none - Family History Father Living Status: Hx Family Cardiac Disorders: Yes (CHF) Mother Living Status: Hx Family Cancer: Yes (Lung cancer) Medications and Allergies Mv-Mn/FA/Lycopene/Lut/Hb#178 [Bertrand Multivit For Men Caplet] 1 each PO DAILY 09/18 [History] [place]-3/Dha/Epa/Fish Oil [Fish Oil 1,000 mg Softgel] 1,000 mg PO DAILY 10/03/16 [History] Aspirin Enteric Coated [Aspirin EC] 325 mg PO BID #20 tablet. 08/24/17 [Rx] OxyCODONE Immed Rel [Roxicodone 5 MG] 5 mg PO Q4HR PRN #24 tablet 08/24/17 [Rx] 3 Allergy/AdvReac Type Severity Reaction Status Date / Time shellfish derived Allergy Anaphylaxis Verified 08/22/17 21:27 All Systems Reviewed: A 10-system review of systems was performed and is negative for pertinent findings except as documented above in the HPI. Physical Exam - Constitutional Vitals: Temp Pulse Resp BP Pulse Ox 99.2 F 78 18 120/76 96 09/30/17 06:30 09/30/17 06:30 09/30/17 06:30 09/30/17 06:30 09/30/17 06:30 Results - Labs Result Diagrams: 09/30/17 02:20 Labs: Abnormal lab results RBC 3.67 M/mcL (4.19-5.50) L 09/30/17 02:20 Hgb 10.7 g/dL (12.9-16.9) L D 09/30/17 02:20 Hct 31.8 % (37.5-50.1) L 09/30/17 02:20 H & H 09/30/17 Range/Units 02:20 Hgb 10.7 L D (12.9-16.9) g/dL Hct 31.8 L (37.5-50.1) % All other labs normal. Consult Discharge Plan - Plan Referrals: Clarisa Torres, MAEVE [Primary Care Provider] -
[2017-09-30] MEDS: Multivit/Ca/Min/Fe/FA 1 TAB TABLET PO SCH (08:17)
[2017-09-30] MEDS ORDERED: Vancomycin 1,500 MG in D5% in Water 250 ML IVPB SCH (09:00)
[2017-09-30] MEDS: Vancomycin 1,250 MG in D5% in Water 250 ML IVPB SCH ×2 (10:50→22:25)
--- NOTE | 2017-09-30 23:56 | Internal Med Progress Note ---
Date of Encounter: 10/01/17 Time of Encounter: 14:56 - Assessment and plan (1) Cellulitis of right hip Current Visit: Yes Status: Acute Assessment and plan: erythema, tenderness and induration and right hip incision site s/p surgical repair in August 2017 The patient is not septic; not meeting any SIRS criteria. -continue antibiotics vancomycin and Zosyn (09/29) -Ortho following, recommendations appreciated. Monitor for improvement (2) HLD (hyperlipidemia) Current Visit: Yes Status: Acute Qualifiers: Hyperlipidemia type: unspecified Qualified Code(s): E78.5 - Hyperlipidemia , unspecified (3) HTN (hypertension) Current Visit: Yes Status: Acute Qualifiers: Hypertension type: essential hypertension Qualified Code(s): I10 - Essential (primary) hypertension (4) DVT prophylaxis Current Visit: Yes Status: Acute - Subjective Interval history: Patient ambulating without issue, states infection better than yesterday. - Constitutional Vitals: Temp Pulse Resp BP Pulse Ox 99.6 F 85 14 156/77 96 09/30/17 20:15 09/30/17 20:15 09/30/17 20:15 09/30/17 20:15 09/30/17 20:15 General appearance: Present: cooperative, A&O X 3, no acute distress, answers questions appropriately Exam: - Head Head exam: Present: atraumatic, normocephalic - Eye Eye exam: Present: PERRL - Respiratory Respiratory exam: Present: CTAB. Absent: accessory muscle use, rales, rhonchi, wheezes - Cardiovascular Cardiovascular exam: Present: RRR, +S1, +S2. Absent: diastolic murmur, gallop, rubs, systolic murmur - GI/Abdominal GI/Abdominal exam: Present: normal bowel sounds, soft, no peritoneal signs. Absent: distended, tenderness - Extremities Exam Extremities exam: Present: tenderness, warm, radial pulses palpable and symmetrical. Absent: calf tenderness, cyanotic, pedal edema Surgical incision s/p right hip repair. Incision site is healing but erythematous, swollen and indurated. There is no drainage at the site - Incison Incision: Present: swollen, inflamed, clean and dry, erythema, indurated. Absent: draining, purulent - Neurological Exam Neurological exam: Present: CN II-XII intact, oriented X3, no focal deficits. Absent: pronater drift, facial droop, speech deficit - Skin Skin exam: Present: dry, intact Internal Medicine: Result - Labs CBC & Chem 7: 10/01/17 08:33 10/01/17 08:33 Labs: Short CBC 09/30/17 Range/Units 02:20 WBC 9.7 (4.3-11.1) K/mcL Hgb 10.7 L D (12.9-16.9) g/dL Hct 31.8 L (37.5-50.1) % Plt Count 229 (140-400) K/mcL Consult Discharge Plan - Plan Referrals: Clarisa Torres, HAND CUTTER [Primary Care Provider] -
[2017-10-01] MEDS: Acetaminophen 325 MG TABLET PO PRN ×2 (04:17→16:25)
[2017-10-01 09:07] LABS: Basophils # 0.1 K/mcL (0.0-0.2); Basophils % 0.4 %; Eosinophils # 0.2 K/mcL (0.0-0.6); Eosinophils % 1.5 %; Hematocrit 37.9 % (37.5-50.1); Lymphocytes # 1.9 K/mcL (0.6-4.6); Lymphocytes % 13.2 %; Mean Corpuscular Hemoglobin 29.5 pg (28.0-33.3); Mean Corpuscular Volume 86.7 fL (83.0-100.0); Mean Platelet Volume 9.9 fL (9.4-12.4); Monocytes # 1.2 K/mcL (0.0-1.3); Monocytes % 8.5 %; Neutrophils # 10.8 K/mcL (1.6-8.9); Platelet Count 355 K/mcL (140-400); Red Blood Count 4.37 M/mcL (4.19-5.50); Red Cell Distribution Width 13.1 % (11.5-14.5); Segmented Neutrophils % 75.4 %
[2017-10-01 09:08] LABS: Hemoglobin 12.9 g/dL (12.9-16.9)
[2017-10-01] MEDS: Vancomycin 1,250 MG in D5% in Water 250 ML IVPB SCH (10:02)
[2017-10-01] MEDS: Multivit/Ca/Min/Fe/FA 1 TAB TABLET PO SCH (10:02)
[2017-10-01 10:34] LABS: BUN/Creatinine Ratio 14 (6-26); Blood Urea Nitrogen 15 mg/dL (8-23); Calcium 9.2 mg/dL (8.6-10.3); Carbon Dioxide 27 mEq/L (23-29); Chloride 98 mEq/L (98-107); Glucose 102 mg/dL (70-105); Osmolality,Calculated 279 (280-300); Potassium 3.8 mEq/L (3.5-5.1); Sodium 134 mEq/L (136-145); eGFR For African Americans > 60 (> 60); eGFR For Non-African Americans > 60 (> 60)
[2017-10-01] MEDS: *HR* OxyCODONE Immed Rel 5 MG TABLET PO PRN ×2 (16:25→21:41)
--- NOTE | 2017-10-01 18:30 | Internal Med Progress Note ---
Date of Encounter: 10/01/17 Time of Encounter: 18:28 - Assessment and plan (1) Cellulitis of right hip Current Visit: Yes Status: Acute Assessment and plan: erythema, tenderness and induration and right hip incision site s/p surgical repair in August 2017 The patient is not septic; not meeting any SIRS criteria. -continue antibiotics vancomycin and Zosyn (09/29) -Ortho following, recommendations appreciated. Monitor for improvement (2) HLD (hyperlipidemia) Current Visit: Yes Status: Acute Qualifiers: Hyperlipidemia type: unspecified Qualified Code(s): E78.5 - Hyperlipidemia , unspecified (3) HTN (hypertension) Current Visit: Yes Status: Acute Qualifiers: Hypertension type: essential hypertension Qualified Code(s): I10 - Essential (primary) hypertension (4) DVT prophylaxis Current Visit: Yes Status: Acute Assessment and plan: Lovenox 40 sq - Subjective Interval history: 09/30: feels improvement, 10/01 not much improvement as yesterday. Still more active without any issue. - Constitutional Vitals: Temp Pulse Resp BP Pulse Ox 99.7 F H 84 16 121/80 95 10/01/17 16:10 10/01/17 16:10 10/01/17 16:10 10/01/17 16:10 10/01/17 16:10 General appearance: Present: cooperative, A&O X 3, no acute distress, answers questions appropriately Exam: - Head Head exam: Present: atraumatic, normocephalic - Eye Eye exam: Present: PERRL - Respiratory Respiratory exam: Present: CTAB. Absent: accessory muscle use, rales, rhonchi, wheezes - Cardiovascular Cardiovascular exam: Present: RRR, +S1, +S2. Absent: diastolic murmur, gallop, rubs, systolic murmur - GI/Abdominal GI/Abdominal exam: Present: normal bowel sounds, soft, no peritoneal signs. Absent: distended, tenderness - Extremities Exam Extremities exam: Present: tenderness, warm, radial pulses palpable and symmetrical. Absent: calf tenderness, cyanotic, pedal edema Surgical incision s/p right hip repair. Incision site is healing but erythematous, swollen and indurated. There is no drainage at the site Erythema relatively unchanged since yesterday. - Incison Incision: Present: swollen, inflamed, clean and dry, erythema, indurated. Absent: draining, purulent - Neurological Exam Neurological exam: Present: CN II-XII intact, oriented X3, no focal deficits. Absent: pronater drift, facial droop, speech deficit - Skin Skin exam: Present: dry, intact Internal Medicine: Result - Labs CBC & Chem 7: 10/01/17 08:33 10/01/17 08:33 Labs: Short CBC 10/01/17 Range/Units 08:33 WBC 14.3 H (4.3-11.1) K/mcL Hgb 12.9 D (12.9-16.9) g/dL Hct 37.9 (37.5-50.1) % Plt Count 355 D (140-400) K/mcL Neutrophils # 10.8 H (1.6-8.9) K/mcL BMP 10/01/17 08:33 Sodium 134 L Potassium 3.8 Chloride 98 Carbon Dioxide 27 BUN 15 Creatinine 1.06 Glucose 102 Calcium 9.2 Consult Discharge Plan - Plan Referrals: Clarisa Torres GOVERNMENT AFFAIRS DIRECTOR [Primary Care Provider] -
[2017-10-01] MEDS: Vancomycin 1,500 MG in D5% in Water 250 ML IVPB SCH (19:39)
[2017-10-02 04:53] LABS: Basophils % 0.4 %; Eosinophils # 0.4 K/mcL (0.0-0.6); Eosinophils % 3.4 %; Hematocrit 34.9 % (37.5-50.1); Hemoglobin 11.7 g/dL (12.9-16.9); Immature Granulocytes % 1.2 % (0-4); Lymphocytes # 1.7 K/mcL (0.6-4.6); Lymphocytes % 16.2 %; Mean Corpuscular HGB Conc 33.5 g/dL (31.6-35.5); Mean Corpuscular Volume 86.4 fL (83.0-100.0); Mean Platelet Volume 9.4 fL (9.4-12.4); Monocytes # 0.9 K/mcL (0.0-1.3); Monocytes % 8.8 %; Neutrophils # 7.5 K/mcL (1.6-8.9); Platelet Count 340 K/mcL (140-400); Red Blood Count 4.04 M/mcL (4.19-5.50)
[2017-10-02] MEDS: *HR* OxyCODONE Immed Rel 5 MG TABLET PO PRN ×4 (05:07→22:10)
[2017-10-02 05:14] LABS: BUN/Creatinine Ratio 16 (6-26); Blood Urea Nitrogen 16 mg/dL (8-23); C-Reactive Protein 184 mg/L (Less than 10); Calcium 8.9 mg/dL (8.6-10.3); Carbon Dioxide 29 mEq/L (23-29); Chloride 100 mEq/L (98-107); Glucose 106 mg/dL (70-105); Osmolality,Calculated 282 (280-300); Potassium 3.9 mEq/L (3.5-5.1); Sodium 135 mEq/L (136-145); eGFR For African Americans > 60 (> 60); eGFR For Non-African Americans > 60 (> 60)
[2017-10-02] MEDS: *HR* Enoxaparin 40 MG/0.4 ML SYRINGE SQ SCH (05:19)
[2017-10-02] MEDS: Vancomycin 1,500 MG in D5% in Water 250 ML IVPB SCH ×2 (07:50→20:13)
[2017-10-02] MEDS: Multivit/Ca/Min/Fe/FA 1 TAB TABLET PO SCH (07:51)
--- NOTE | 2017-10-02 08:57 | Orthopedics Progress Note ---
Date of Encounter: 10/02/17 Time of Encounter: 08:56 Subjective Interval history: Patient was evaluated yesterday and today no significant improvement over last [address] scan done to evaluate for intra-articular fluid or other abscess. CT scan was reviewed with Dr. Doherty no fluid collection or abscess collection. Patient is elevated ESR and CRP is obviously experiencing cellulitis. Recommendation is to discharge on IV antibiotics vancomycin 15 mg/kg. Patient will receive a PICC line today. Patient has minimal drainage at the area of the incision erythema has remained unchanged. Patient will follow-up in the office in less than 1 week. Instructed to contact the office it is a change or concern with regard to his condition. Objective Vital signs: Vital Signs Temp Pulse Resp BP Pulse Ox 10/02/17 07:06 97.6 F 86 16 132/62 96 10/02/17 04:56 98.7 F 83 16 139/76 98 10/02/17 00:05 99.1 F 77 14 135/75 96 10/01/17 19:57 98.6 F 81 16 134/82 95 10/01/17 16:10 99.7 F H 84 16 121/80 95 10/01/17 12:00 98.4 F 80 15 127/73 95 Intake and Output 10/01/17 10/02/17 10/02/17 23:59 07:59 15:59 Intake Total 100 / 100 350 / 350 Output Total 200 / 200 700 / 700 Balance -100 / -100 -350 / -350 Intake: IV Fluids 100 / 100 350 / 350 Zosyn 3.375 GM In 0.9 % Sodium 100 / 100 100 / 100 Chloride 100 ML @ 25 mls/hr IVPB Q8H [facility] Rx#:[id number] Vancocin 1,500 MG In Dextrose 5 250 / 250 % 250 ML @ 166.667 mls/hr IVPB Q12H [facility] Rx#:[id number] Output: Urine 200 / 200 700 / 700 - Labs CBC & BMP: 10/02/17 04:21 10/02/17 04:21 Labs: Abnormal lab results RBC 4.04 M/mcL (4.19-5.50) L 10/02/17 04:21 Hgb 11.7 g/dL (12.9-16.9) L 10/02/17 04:21 Hct 34.9 % (37.5-50.1) L 10/02/17 04:21 ESR >= 130 mm/hr (0-10) H 10/02/17 04:21 Sodium 135 mEq/L (136-145) L 10/02/17 04:21 Glucose 106 mg/dL (70-105) H 10/02/17 04:21 C-Reactive Protein 184 mg/L (Less than 10) H 10/02/17 04:21 Vancomycin Trough 6.7 mcg/mL (10-20) L 10/01/17 08:33 Consult Discharge Plan - Plan Referrals: Clarisa Torres, EMT BASIC [Primary Care Provider] -
[2017-10-02] MEDS ORDERED: Lidocaine -MPF 1% 5 ML AMPUL INFILT ONE (11:13)
--- NOTE | 2017-10-02 20:58 | Internal Med Progress Note ---
Date of Encounter: 10/02/17 Time of Encounter: 13:56 - Assessment and plan (1) Cellulitis of right hip Current Visit: Yes Status: Acute Assessment and plan: erythema, tenderness and induration and right hip incision site s/p surgical repair in August 2017 The patient is not septic; not meeting any SIRS criteria. -Ortho following, recommendations appreciated. Home with vancomycin once therapeutic dose reached. Vanc trough due 2/ in AM, likely DC tomorrow. (2) HLD (hyperlipidemia) Current Visit: Yes Status: Acute Qualifiers: Hyperlipidemia type: unspecified Qualified Code(s): E78.5 - Hyperlipidemia , unspecified (3) HTN (hypertension) Current Visit: Yes Status: Acute Qualifiers: Hypertension type: essential hypertension Qualified Code(s): I10 - Essential (primary) hypertension (4) DVT prophylaxis Current Visit: Yes Status: Acute - Subjective Interval history: No acute issues, no complaints. - Constitutional Vitals: Temp Pulse Resp BP Pulse Ox 99.3 F 94 16 120/80 95 10/02/17 20:34 10/02/17 20:34 10/02/17 20:34 10/02/17 20:34 10/02/17 20:34 General appearance: Present: cooperative, A&O X 3, no acute distress, answers questions appropriately Exam: CVS: RRR Lungs: CTAB Ext: right thigh erythema slightly better than yesterday, no purulent drainage at excision site. Internal Medicine: Result - Labs CBC & Chem 7: 10/02/17 04:21 10/02/17 04:21 Labs: Short CBC 10/02/17 Range/Units 04:21 WBC 10.7 (4.3-11.1) K/mcL Hgb 11.7 L (12.9-16.9) g/dL Hct 34.9 L (37.5-50.1) % Plt Count 340 (140-400) K/mcL Neutrophils # 7.5 (1.6-8.9) K/mcL BMP 10/02/17 04:21 Sodium 135 L Potassium 3.9 Chloride 100 Carbon Dioxide 29 BUN 16 Creatinine 1.01 Glucose 106 H Calcium 8.9 Consult Discharge Plan - Plan Referrals: Clarisa Torres, IMMIGRATION SERVICES OFFICER [Primary Care Provider] -
[2017-10-03] MEDS: *HR* Enoxaparin 40 MG/0.4 ML SYRINGE SQ SCH (06:02)
--- NOTE | 2017-10-03 08:15 | Orthopedics Progress Note ---
Date of Encounter: 10/03/17 Time of Encounter: 08:13 Subjective Interval history: Patient seen this morning discharge held related to insurance and home health IV therapy. Patient still with erythema of the right hip I have consulted ID to evaluate if patient is on appropriate IV antibiotic and also to evaluate if there is a once a day dosing that may help with patient's IV therapy from home. Patient's CT scan was reviewed yesterday and found to have no localized abscess. Still appears to be a significant cellulitis we will continue to monitor. Patient is to follow-up if discharged on Saturday. This was discussed with the patient and his family at length. Objective Vital signs: Vital Signs Temp Pulse Resp BP Pulse Ox 10/03/17 07:34 98.1 F 85 16 136/83 97 10/03/17 04:19 98.1 F 85 16 117/78 96 10/02/17 22:53 98.8 F 86 16 143/74 95 10/02/17 20:34 99.3 F 94 16 120/80 95 10/02/17 11:27 98.6 F 79 16 116/76 96 Intake and Output 10/02/17 10/03/17 10/03/17 23:59 07:59 15:59 Intake Total 0 / 0 100 / 100 Output Total 0 / 0 750 / 750 Balance 0 / 0 -650 / -650 Intake: IV Fluids 100 / 100 Zosyn 3.375 GM In 0.9 % Sodium 100 / 100 Chloride 100 ML @ 25 mls/hr IVPB Q8H [facility] Rx#:[id number] Oral 0 / 0 Output: Urine 0 / 0 750 / 750 Other: Stool Size Moderate Stool Consistency loose soft Stool Color Brown # Voids 1 # Bowel Movements 1 - Labs CBC & BMP: 10/02/17 04:21 10/02/17 04:21 Labs: Abnormal lab results RBC 4.04 M/mcL (4.19-5.50) L 10/02/17 04:21 Hgb 11.7 g/dL (12.9-16.9) L 10/02/17 04:21 Hct 34.9 % (37.5-50.1) L 10/02/17 04:21 ESR >= 130 mm/hr (0-10) H 10/02/17 04:21 Sodium 135 mEq/L (136-145) L 10/02/17 04:21 Glucose 106 mg/dL (70-105) H 10/02/17 04:21 C-Reactive Protein 184 mg/L (Less than 10) H 10/02/17 04:21 Consult Discharge Plan - Plan Referrals: Clarisa Torres, RUG DRYING MACHINE OPERATOR [Primary Care Provider] -
[2017-10-03] MEDS: Vancomycin 1,500 MG in D5% in Water 250 ML IVPB SCH ×2 (08:21→19:51)
[2017-10-03] MEDS: Multivit/Ca/Min/Fe/FA 1 TAB TABLET PO SCH (08:22)
[2017-10-03 10:02] LABS: BUN/Creatinine Ratio 15 (6-26); Blood Urea Nitrogen 16 mg/dL (8-23); Calcium 8.8 mg/dL (8.6-10.3); Carbon Dioxide 26 mEq/L (23-29); Chloride 102 mEq/L (98-107); Glucose 93 mg/dL (70-105); Osmolality,Calculated 283 (280-300); Potassium 4.4 mEq/L (3.5-5.1); Sodium 136 mEq/L (136-145); eGFR For African Americans > 60 (> 60); eGFR For Non-African Americans > 60 (> 60)
[2017-10-03] MEDS: *HR* OxyCODONE Immed Rel 5 MG TABLET PO PRN ×2 (10:10→19:52)
--- NOTE | 2017-10-03 11:33 | Infectious Disease Consult ---
Date of Encounter: 10/03/17 Time of Encounter: 11:30 Assessment and Plan (1) Sepsis Status: Acute Assessment and plan: The patient had two SIRS criteria. Likely secondary to right hip cellulitis. No lactic acid was checked. No blood cultures were checked. Improved. WBC has normalized. He has been afebrile x 48 hours. IV fluid resuscitation per the primary team. Qualifiers: Sepsis type: sepsis due to unspecified organism Qualified Code(s): A41.9 - Sepsis, unspecified organism (2) Cellulitis of right hip Status: Acute Assessment and plan: Causative organism unclear. Improved per patient report and it appears to be receding from the skin markings. CT of the right hip showed findings consistent with cellulitis, but no abscess or septic joint. The wound opened up this morning and started draining. ESR and CRP are very elevated. Based on the clinical picture, very concerned that there might be a deeper infection given that the patient developed pain first, then fevers/nausea, and then erythema of the skin and markedly elevated inflammatory markers. Get wound culture stat. Not sure how helpful it will be since the patient has been on IV antibiotics for 5 days now. Continue Vancomycin IV. Pharmacy to dose. Goal trough ~15. VT 12.7 this morning. Continue Zosyn 3.375 grams IV Q8H. Duration of treatment depends on the clinical picture, but likely at least 2 weeks of IV antibiotics for the skin and soft tissue infection. We will need to be aggressive to prevent seeding of the hardware. Monitor renal function and for drug toxicity and dose-adjust antibiotics. Await cultures. Will hopefully be able to tailor antibiotics based on the culture. Wound care and activity restrictions as outlined by the orthopedic team. (3) HLD (hyperlipidemia) Status: Acute Qualifiers: Hyperlipidemia type: unspecified Qualified Code(s): E78.5 - Hyperlipidemia , unspecified (4) HTN (hypertension) Status: Acute Qualifiers: Hypertension type: essential hypertension Qualified Code(s): I10 - Essential (primary) hypertension (5) History of total right hip replacement Status: Acute Assessment and plan: Status post robotic right total hip replacement 08/23/[address] Cheng. Infectious Disease HPI - Data of Consult Patient: new to practice Consult date: 10/03/17 Requesting Physician: Mike Garcia Primary Care Provider: Clarisa Torres CNP - Consult Narrative Reason for consult: Right hip cellulitis History of present illness: Mr. Atwood is a 67 year old male history of osteoarthritis, hypertension, and a right hip replacement back in August 2017. The patient was admitted to the hospital September 29 for right hip cellulitis. We are consulted October 03 for antibiotic recommendations for right hip cellulitis. Briefly, The patient is a 67-year-old male with past medical history as stated above. Apparently, the patient sustained a right femoral neck fracture back in August. At that time, the patient underwent a right total hip replacement by Dr. Cheng. Well postoperatively until last Saturday when he began having increasing pain. He started having fevers and chills and rigors and was generally not feeling well. He started having erythema on her stay that got suddenly worse on Saturday. His gave him Augmentin that she had at home and called the orthopedics office and they were directed to come to the emergency department. Upon presentation to the ER the patient was afebrile and hemodynamically stable. He did have leukocytosis with neutrophilic predominance. Blood cultures were obtained 2 sets are currently no growth to date. He was given a dose of IV vancomycin and transferred here for additional evaluation. Admission, the patient's white blood cell count has normalized. He does have markedly elevated inflammatory markers of an ESR of greater than 130 with a CRP of 184. He did have a low-grade fever couple of days ago with a MAXIMUM TEMPERATURE of 100.3. He underwent a CT of the right hip due to no improvement after being on antibiotics for [address] of the hip showed tiny is consistent with status post right hip arthroplasty with anatomic alignment without evidence of fracture or osteomyelitis. There is also noted to be some subcutaneous changes in the right anterior lateral hip consistent with cellulitis. There is also noted to be right periarticular soft tissue fullness with a scattered gas foci, but according to the notes Dr. Cheng spoke directly with the radiologist who felt that this was likely most related to postsurgical changes. The patient was started on IV vancomycin and IV Zosyn area, but has had minimal improvement. We have been asked to evaluate and make further recommendations. My exam today, the patient endorses a history as stated above. He reports fevers and chills and rigors with nausea. He denied any congestion, earache, or sore throat. He denies any chest pain, shortness of breath, or cough. He denies any vomiting or diarrhea or constipation. He denies any abdominal pain or urinary complaints. He states he was not eating much due to the nausea. He states the pain started on Saturday and was little pink around the incision, but the market erythema started on Saturday. He states he has not had any drainage until today when it started draining some clear yellow fluid. He states today the redness is better and has receded some and is a little less painful. He denies the oral thrush or new skin lesions. He denies any numbness or tingling. He denies any pain in his back or other extremities. She lives at home with his . 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 He denies any tobacco, alcohol, or illicit drug use. CC: Mike Garcia Past Med Surg Social Fam HX - Past Medical History Attestation: Yes The following information was validated with the patient. Source: patient, old records reviewed, nursing notes reviewed Medical history: arthritis, hyperlipidemia, hypertension Psychiatric history: no psych history - Past Surgical History Surgical History: orthopedic, other (Right robotic total hip replacement 08/2017 ) - Social History Smoking Status: Never smoker Smokeless Tobacco Status: No Alcohol use: occasionally Drug use: none Occupational status: employed Current living situation: Home, With Family Activity Level: Independent ambulation Recent Out of Country Travel Within the Last 8 Weeks: No Exposure or Possible Exposure to Illness During Travel: No - Family History Father Living Status: Hx Family Cardiac Disorders: Yes (CHF) Mother Living Status: Hx Family Cancer: Yes (Lung cancer) Infectious Disease-CN:Meds Mv-Mn/FA/Lycopene/Lut/Hb#178 [Bertrand Multivit For Men Caplet] 1 each PO DAILY 09/18 [History] [place]-3/Dha/Epa/Fish Oil [Fish Oil 1,000 mg Softgel] 1,000 mg PO DAILY 10/03/16 [History] Aspirin Enteric Coated [Aspirin EC] 325 mg PO BID #20 tablet. 08/24/17 [Rx] 3 Allergy/AdvReac Type Severity Reaction Status Date / Time shellfish derived Allergy Anaphylaxis Verified 08/22/17 21:27 All systems: reviewed and no additional remarkable complaints except as stated Exam - Constitutional Vitals: Temp Pulse Resp BP Pulse Ox 98.1 F 85 16 136/83 97 10/03/17 07:34 10/03/17 07:34 10/03/17 07:34 10/03/17 07:34 10/03/17 07:34 General appearance: average body habitus, cooperative, no acute distress - Head Head exam: Present: atraumatic, normal inspection, normocephalic - Eye Eye exam: Present: EOMI, normal appearance, PERRL Pupils: Present: normal accommodation - ENT ENT exam: Present: mucous membranes moist - Neck Neck exam: Present: normal inspection - Respiratory Respiratory exam: Present: CTAB. Absent: rales, respiratory distress, rhonchi, wheezes - Cardiovascular Cardiovascular exam: Present: RRR, +S1, +S2 - GI/Abdominal GI/Abdominal exam: Present: normal bowel sounds, soft. Absent: distended, tenderness - Extremities Exam Additional comments: Right lateral hip incision with small area of dehiscence noted with small amount of serous yellow drainage. Tenderness noted with palpation. No fluctuance noted. Erythema receded from previous skin marking. - Back Exam Back exam: Present: normal inspection. Absent: paraspinal tenderness, vertebral tenderness - Neurological Exam Neurological exam: Present: alert, oriented X3, no focal deficits - Psychiatric Psychiatric exam: Present: normal affect, normal mood - Skin Skin exam: Present: dry, intact, normal color, warm Infectious Disease CN: Results - Labs CBC & Chem 7: 10/02/17 04:21 10/03/17 06:50 Consult Discharge Plan - Plan Referrals: Clarisa Torres VITICULTURIST [Primary Care Provider] - - Attending Attestation I examined this patient and my medical decision-making was reviewed with the Resident Physician. I agree with the documented findings, disposition and treatment plan as described except to the extent set forth below. Since admission patient has been febrile with a MAXIMUM TEMPERATURE of 100.3 Fahrenheit, tachycardic scratch that no tachycardia, a WBC of 14.3 thousand with normal differential no bands. ESR was checked and it was over 130 and CRP was 184. A CT of the head shows no evidence of fracture or osteomyelitis right anterolateral hip subcutaneous changes which may represent cellulitis. Right periarticular soft tissue fullness with few scattered gas foci. Patient was started on vancomycin. Patient did not improve clinically and Zosyn was added. We were asked to evaluate the patient make further recommendations. Patient is accomplished case and there is concern for deep infection including the prosthesis. I spent to the patient is not willing to find out because no imaging is under percent and the best way to find out is to do arthrocentesis of the joint and see if anything grows and with a cell count is. The only problem is he has cellulitis and arthrocentesis will be contraindicated. Plus the patient has been on antibiotics within 3 days so I think the cultures would be skewed. After long discussion with him and his who was at bedside, and after reviewing orthopedics note send recommendations, the decision is to treat worth of 2 weeks worth of IV antibiotics for skin and skin structure infection. Once we stop the antibiotics, if the infection reveals itself again then well have to reevaluate and probably he will need 2-stage exchange if we feel that the infection is deep. Patient very aware of his options and hes okay with treating as a superficial infection and stopping antibiotics and seemed infection reveals itself in a few weeks after that. In the meantime patient does have some drainage so we will get a swab culture. And hopefully if an organism grows we will adjust antibiotics based on culture results. If cultures remain negative well probably have to do come initial vancomycin and levofloxacin for 2 weeks. Patient really has a PICC line placed. Patient will need weekly labs and a goal vancomycin around 15. Patient to follow -up with us in clinic in 2 weeks.
--- NOTE | 2017-10-03 18:51 | Internal Med Progress Note ---
Date of Encounter: 10/03/17 Time of Encounter: 18:49 - Assessment and plan (1) Cellulitis of right hip Current Visit: Yes Status: Acute Assessment and plan: erythema, tenderness and induration and right hip incision site s/p surgical repair in August 2017 ID consulted, recommendations appreciated. Vanc/Luisan. Wound cultures. Insurance issues may limit resources for patient upon discharge. (2) HLD (hyperlipidemia) Current Visit: Yes Status: Acute Qualifiers: Hyperlipidemia type: unspecified Qualified Code(s): E78.5 - Hyperlipidemia , unspecified (3) HTN (hypertension) Current Visit: Yes Status: Acute Qualifiers: Hypertension type: essential hypertension Qualified Code(s): I10 - Essential (primary) hypertension (4) DVT prophylaxis Current Visit: Yes Status: Acute Assessment and plan: Lovenox 40 sq - Subjective Interval history: No acute issues, no complaints. - Constitutional Vitals: Temp Pulse Resp BP Pulse Ox 98.4 F 81 16 127/79 97 10/03/17 16:07 10/03/17 16:07 10/03/17 16:07 10/03/17 16:07 10/03/17 16:07 General appearance: Present: cooperative, A&O X 3, no acute distress, answers questions appropriately Exam: CVS: RRR Lungs: CTAB Ext: right thigh erythema unchanged, some purulent discharge noted, not actively draining. Internal Medicine: Result - Labs CBC & Chem 7: 10/02/17 04:21 10/03/17 06:50 Labs: BMP 10/03/17 06:50 Sodium 136 Potassium 4.4 Chloride 102 Carbon Dioxide 26 BUN 16 Creatinine 1.05 Glucose 93 Calcium 8.8 Consult Discharge Plan - Plan Referrals: Clarisa Torres, PORTABLE PINCH RIVETER [Primary Care Provider] -
[2017-10-04] MEDS ORDERED: Ondansetron 4 MG/2 ML VIAL IVP PRN (00:10)
[2017-10-04] MEDS: *HR* OxyCODONE Immed Rel 5 MG TABLET PO PRN ×3 (00:27→23:50)
[2017-10-04] MEDS: *HR* Enoxaparin 40 MG/0.4 ML SYRINGE SQ SCH (04:40)
[2017-10-04 05:30] LABS: Basophils % 0.3 %; Eosinophils # 0.1 K/mcL (0.0-0.6); Eosinophils % 0.8 %; Hematocrit 35.8 % (37.5-50.1); Hemoglobin 12.1 g/dL (12.9-16.9); Immature Granulocytes % 0.7 % (0-4); Lymphocytes # 1.3 K/mcL (0.6-4.6); Lymphocytes % 8.8 %; Mean Corpuscular HGB Conc 33.8 g/dL (31.6-35.5); Mean Corpuscular Hemoglobin 29.5 pg (28.0-33.3); Mean Corpuscular Volume 87.3 fL (83.0-100.0); Mean Platelet Volume 9.7 fL (9.4-12.4); Monocytes # 0.8 K/mcL (0.0-1.3); Monocytes % 5.5 %; Neutrophils # 12.1 K/mcL (1.6-8.9); Platelet Count 418 K/mcL (140-400); Red Cell Distribution Width 13.1 % (11.5-14.5); Segmented Neutrophils % 83.9 %
[2017-10-04 05:40] LABS: BUN/Creatinine Ratio 17 (6-26); Blood Urea Nitrogen 19 mg/dL (8-23); Carbon Dioxide 26 mEq/L (23-29); Chloride 100 mEq/L (98-107); Glucose 113 mg/dL (70-105); Osmolality,Calculated 281 (280-300); Potassium 4.6 mEq/L (3.5-5.1); Sodium 134 mEq/L (136-145); eGFR For African Americans > 60 (> 60); eGFR For Non-African Americans > 60 (> 60)
[2017-10-04] MEDS: Multivit/Ca/Min/Fe/FA 1 TAB TABLET PO SCH (08:39)
[2017-10-04] MEDS: Vancomycin 1,500 MG in D5% in Water 250 ML IVPB SCH ×2 (08:40→20:57)
--- NOTE | 2017-10-04 10:27 | Infectious Disease Progress No ---
Date of Encounter: 10/04/17 Time of Encounter: 10:24 - Assessment and Plan (1) Sepsis Current Visit: Yes Status: Acute The patient had two SIRS criteria. Likely secondary to right hip cellulitis. No lactic acid was checked. No blood cultures were checked. Improved. WBC has normalized. WBC back up on today's labs. Fuid resuscitation per the primary team. Qualifiers: Sepsis type: sepsis due to unspecified organism Qualified Code(s): A41.9 - Sepsis, unspecified organism (2) Cellulitis of right hip Current Visit: Yes Status: Acute Causative organism unclear. Improved per patient report and it appears to be receding from the skin markings. CT of the right hip showed findings consistent with cellulitis, but no abscess or septic joint. The wound opened up this morning and started draining. ESR and CRP are very elevated. Based on the clinical picture, very concerned that there might be a deeper infection given that the patient developed pain first, then fevers/nausea, and then erythema of the skin and markedly elevated inflammatory markers. Wound culture pending. The wound continues to have a significant amount of drainage. Not sure how helpful the culture will be since the patient has been on IV antibiotics for 5 days now. Continue Vancomycin IV. Pharmacy to dose. Goal trough ~15. VT 12.6 10/03/17. Continue Zosyn 3.375 grams IV Q8H. Duration of treatment depends on the clinical picture, but likely at least 2 weeks of IV antibiotics for the skin and soft tissue infection. We will need to be aggressive to prevent seeding of the hardware. Monitor renal function and for drug toxicity and dose-adjust antibiotics. Await cultures. Will hopefully be able to tailor antibiotics based on the culture. Wound care and activity restrictions as outlined by the orthopedic team. (3) HLD (hyperlipidemia) Current Visit: Yes Status: Acute Qualifiers: Hyperlipidemia type: unspecified Qualified Code(s): E78.5 - Hyperlipidemia , unspecified (4) HTN (hypertension) Current Visit: Yes Status: Acute Qualifiers: Hypertension type: essential hypertension Qualified Code(s): I10 - Essential (primary) hypertension (5) History of total right hip replacement Current Visit: Yes Status: Acute - Subjective Interval history: Patient seen and examined. No acute events noted overnight. Patient reports improved pain in the right hip. Denies any fevers or chills or rigors. Denies any chest pain, shortness of breath, or cough. Denies any nausea, vomiting, diarrhea, constipation. He does report loose stool yesterday. He denies any abdominal pain, urinary complaints, or appetite changes. He denies oral thrush or new skin lesions. He states that the surgical wound continues to drain serous drainage and the erythema has improved. Infect Dis PN-Objective Data - Labs CBC & Chem 7: 10/04/17 04:45 10/04/17 04:45 Labs: Laboratory Results - last 24 hr 10/04/17 10/04/17 04:45 04:45 WBC 14.5 H RBC 4.10 L Hgb 12.1 L Hct 35.8 L MCV 87.3 MCH 29.5 MCHC 33.8 RDW 13.1 Plt Count 418 H MPV 9.7 Immature Gran % 0.7 Seg Neutrophils % 83.9 Lymphocytes % 8.8 Monocytes % 5.5 Eosinophils % 0.8 Basophils % 0.3 Neutrophils # 12.1 H Lymphocytes # 1.3 Monocytes # 0.8 Eosinophils # 0.1 Basophils # 0.0 Sodium 134 L Potassium 4.6 Chloride 100 Carbon Dioxide 26 BUN 19 Creatinine 1.10 Est GFR ( Amer) > 60 Est GFR (Non-Af Amer) > 60 BUN/Creatinine Ratio 17 Glucose 113 H Calculated Osmolality 281 Calcium 9.0 Exam - Constitutional Vitals: Temp Pulse Resp BP Pulse Ox 98.3 F 84 17 132/78 97 10/04/17 07:38 10/04/17 07:38 10/04/17 07:38 10/04/17 07:38 10/04/17 07:38 General appearance: average body habitus, cooperative, no acute distress - Head Head exam: Present: atraumatic, normal inspection, normocephalic - Eye Eye exam: Present: EOMI, normal appearance, PERRL Pupils: Present: normal accommodation - ENT ENT exam: Present: mucous membranes moist - Neck Neck exam: Present: normal inspection - Respiratory Respiratory exam: Present: CTAB. Absent: rales, respiratory distress, rhonchi, wheezes - Cardiovascular Cardiovascular exam: Present: RRR, +S1, +S2 - GI/Abdominal GI/Abdominal exam: Present: normal bowel sounds, soft. Absent: distended, tenderness - Extremities Exam Additional comments: Right hip lateral surgical site with honeycomb dressing with large amount of orange sanguinous drainage. Erythema stable, but not much improved. Tenderness noted with palpation. - Neurological Exam Neurological exam: Present: alert, oriented X3, no focal deficits - Psychiatric Psychiatric exam: Present: normal affect, normal mood - Skin Skin exam: Present: dry, intact, normal color, warm Consult Discharge Plan - Plan Referrals: Clarisa Torres, PLANNING MANAGER [Primary Care Provider] - - Attending Attestation I examined this patient and my medical decision-making was reviewed with the Resident Physician. I agree with the documented findings, disposition and treatment plan as described except to the extent set forth below. Still having a lot of drainage cultures from yesterday no growth to date repeat cultures (would halp to have an organism) continue current antibiotics (vanc and zosyn) monitor labs and for drug toxicity
--- NOTE | 2017-10-04 18:08 | Orthopedics Progress Note ---
Date of Encounter: 10/04/17 Time of Encounter: 12:20 Subjective Interval history: This is the first I have evaluated this patient but he states he is feeling better as of evaluation earlier this afternoon and states redness is improving. It is receding from the skin markings. States the current dressing has been on for 2-3 days but does have some drainage noted of unclear timeframe. Nursing changed dressings. Patient later rolled over in bed and had significantly increased drainage from the incision site, nursing states some purulent drainage at first and then mostly serous. Plan for repeat CT scan as original scan showed no abscess, only cellulitis. Discussed with Dr. Cheng and plan for right hip I&D either tonight or in am by Dr. Gates. Patient to be NPO accordingly. Wound cultures pending, preliminary show no growth. Appreciate ID recommendations. ABX choice per ID (vancomycin and zosyn until final cx results) Objective Vital signs: Vital Signs Temp Pulse Resp BP Pulse Ox 10/04/17 15:08 97.8 F 86 18 133/81 97 10/04/17 11:46 98.2 F 91 18 130/76 96 10/04/17 07:38 98.3 F 84 17 132/78 97 10/03/17 23:29 98.6 F 86 15 151/88 94 10/03/17 19:37 98.3 F 77 17 96/57 97 Intake and Output 10/04/17 10/04/17 10/04/17 07:59 15:59 23:59 Intake Total 580 / 580 Output Total 650 / 650 Balance -70 / -70 Intake: IV Fluids 100 / 100 Zosyn 3.375 GM In 0.9 % Sodium 100 / 100 Chloride 100 ML @ 25 mls/hr IVPB Q8H ROMANA Rx#:[id number] Oral 480 / 480 Output: Urine 650 / 650 Other: Meal Lunch Percent of Meal Consumed 50% # Voids 1 - Labs CBC & BMP: 10/04/17 04:45 10/04/17 04:45 Labs: Abnormal lab results WBC 14.5 K/mcL (4.3-11.1) H 10/04/17 04:45 RBC 4.10 M/mcL (4.19-5.50) L 10/04/17 04:45 Hgb 12.1 g/dL (12.9-16.9) L 10/04/17 04:45 Hct 35.8 % (37.5-50.1) L 10/04/17 04:45 Plt Count 418 K/mcL (140-400) H 10/04/17 04:45 Neutrophils # 12.1 K/mcL (1.6-8.9) H 10/04/17 04:45 ESR >= 130 mm/hr (0-10) H 10/02/17 04:21 Sodium 134 mEq/L (136-145) L 10/04/17 04:45 Glucose 113 mg/dL (70-105) H 10/04/17 04:45 C-Reactive Protein 184 mg/L (Less than 10) H 10/02/17 04:21 Consult Discharge Plan - Plan Referrals: Clarisa Torres, POLE FRAME CONSTRUCTION WORKER [Primary Care Provider] -
--- NOTE | 2017-10-04 18:12 | Event Note ---
Date of Encounter: 10/04/17 Time of Encounter: 17:[address] Cheng that nurse noticed significant drainage to wound. Went to see patient and noticed appx 3cm gapping along anterior portion of incision with induration and fluctance along gapping. Serosanguinous, blood and pus streaked fluid noted to be draining from incision. Minimal further drainage able to be expressed from wound. In addition appx another 1-2cm farther posterior along wound are noted fluctuant blister-like appearance. Erythematous area continues to be noted within marked area. Keeley, nurse applied pressure dressing to area. Patient otherwise asymptomatic with no proximal or distal tenderness, erythema, or tracting. Right knee is nontender with no swelling or warmth. Calves nontender. Neurovascularly intact. Denies nausea/vomiting, dizziness, shortness of breath or chest pain. Admits to loose stools. Discussed case with Dr. Cheng and Dr. Gates who is carbon capture power plant operator. Stat CT scan ordered with contrast to evaluate depth of fluid collection. NPO order placed for midnight tonight. Consent obtained for patient to have I/D right hip wound. Placed on floor for surgery tomorrow morning. Patient and spouse expressed understanding and agreement with plan as set forth above.
--- NOTE | 2017-10-04 21:27 | Internal Med Progress Note ---
Date of Encounter: 10/04/17 Time of Encounter: 15:25 - Assessment and plan (1) Cellulitis of right hip Current Visit: Yes Status: Acute Assessment and plan: erythema, tenderness and induration and right hip incision site s/p surgical repair in August 2017 ID consulted, recommendations appreciated. Vanc/Zosyn. Wound cultures to determine final antibitocs (2) HLD (hyperlipidemia) Current Visit: Yes Status: Acute Qualifiers: Hyperlipidemia type: unspecified Qualified Code(s): E78.5 - Hyperlipidemia , unspecified (3) HTN (hypertension) Current Visit: Yes Status: Acute Qualifiers: Hypertension type: essential hypertension Qualified Code(s): I10 - Essential (primary) hypertension (4) DVT prophylaxis Current Visit: Yes Status: Acute Assessment and plan: Lovenox 40 sq - Subjective Interval history: Patient had excessive drainage that was draining most of today. He denies fevers/chills. He does state that overall he feels better. - Constitutional Vitals: Temp Pulse Resp BP Pulse Ox 98.1 F 84 14 142/84 96 10/04/17 21:02 10/04/17 21:02 10/04/17 21:02 10/04/17 21:02 10/04/17 21:02 General appearance: Present: cooperative, A&O X 3, no acute distress, answers questions appropriately Exam: CVS: RRR Lungs: CTAB Ext: right thigh erythema better, actively purulent drainage today. Internal Medicine: Result - Labs CBC & Chem 7: 10/04/17 04:45 10/04/17 04:45 Labs: Short CBC 10/04/17 Range/Units 04:45 WBC 14.5 H (4.3-11.1) K/mcL Hgb 12.1 L (12.9-16.9) g/dL Hct 35.8 L (37.5-50.1) % Plt Count 418 H (140-400) K/mcL Neutrophils # 12.1 H (1.6-8.9) K/mcL BMP 10/04/17 04:45 Sodium 134 L Potassium 4.6 Chloride 100 Carbon Dioxide 26 BUN 19 Creatinine 1.10 Glucose 113 H Calcium 9.0 - Impressions Impressions Hip CT 10/04/17 17:47 IMPRESSION: 1. Rim enhancing fluid collection centered within the right gluteus muscle posterior to the right greater trochanter measuring approximately 1.0 x 4.2 x 5.1 cm most compatible with abscess. There is somewhat indistinct appearance of the surrounding right gluteus musculature suggestive of myositis. 2. Subcutaneous edema and skin thickening of the right lateral soft tissues compatible with cellulitis. There is also somewhat confluent fluid within the subcutaneous fat laterally measuring approximately 1.6 x 2.5 x 3.0 cm also concerning for abscess. 3. Status post right hip arthroplasty with no evidence for periprosthetic fracture. No suspicious periosteal changes. D/ / Toney Guardado MD / Toney Guardado MD Interpreting Provider: Toney Guardado MD Consult Discharge Plan - Plan Referrals: Clarisa Torres CNP [Primary Care Provider] -
[2017-10-05] MEDS: *HR* Enoxaparin 40 MG/0.4 ML SYRINGE SQ SCH (04:42)
[2017-10-05 06:40] LABS: Basophils % 0.4 %; Eosinophils # 0.4 K/mcL (0.0-0.6); Eosinophils % 4.6 %; Hematocrit 35.4 % (37.5-50.1); Hemoglobin 11.6 g/dL (12.9-16.9); Immature Granulocytes % 1.2 % (0-4); Lymphocytes # 1.6 K/mcL (0.6-4.6); Lymphocytes % 16.9 %; Mean Corpuscular HGB Conc 32.8 g/dL (31.6-35.5); Mean Corpuscular Hemoglobin 28.9 pg (28.0-33.3); Mean Corpuscular Volume 88.1 fL (83.0-100.0); Mean Platelet Volume 8.9 fL (9.4-12.4); Monocytes # 0.7 K/mcL (0.0-1.3); Monocytes % 7.6 %; Neutrophils # 6.4 K/mcL (1.6-8.9); Platelet Count 431 K/mcL (140-400); Red Blood Count 4.02 M/mcL (4.19-5.50); Segmented Neutrophils % 69.3 %
[2017-10-05] MEDS: Multivit/Ca/Min/Fe/FA 1 TAB TABLET PO SCH (08:58)
[2017-10-05] MEDS: Vancomycin 1,500 MG in D5% in Water 250 ML IVPB SCH ×2 (08:58→20:27)
--- NOTE | 2017-10-05 10:29 | Anesthesia Evaluation PreOp ---
Date of Encounter: 10/05/17 Time of Encounter: 10:27 - Past History Planned Operation: I&D R-hip, replacement of JACKIE hardware Cardiac History: Denies any Significant Hx Pulmonary History: Denies Any Significant HX DELIMBER OPERATOR History: Denies Any Significant HX Other Medical History: Denies Any Significant HX Anesthesia History: No Prior Anesthetic Complications, Past Anesthesia (Robotic R-Hip 08/2017, C3-6 fusion) Alcohol Use: occasionally Drug use: none Medications and Allergies Mv-Mn/FA/Lycopene/Lut/Hb#178 [Bertrand Multivit For Men Caplet] 1 each PO DAILY 09/18 [History] [place]-3/Dha/Epa/Fish Oil [Fish Oil 1,000 mg Softgel] 1,000 mg PO DAILY 10/03/16 [History] Aspirin Enteric Coated [Aspirin EC] 325 mg PO BID #20 tablet. 08/24/17 [Rx] 3 Allergy/AdvReac Type Severity Reaction Status Date / Time shellfish derived Allergy Anaphylaxis Verified 08/22/17 21:27 - Meds/Allergy Pre-op Review Medications Reviewed: Yes Allergies Reviewed: Yes Beta Blockers on Current Med List: No Anesthesia Results - Labs 10/05/17 06:20 10/04/17 04:45 Laboratory Results WBC 9.2 K/mcL (4.3-11.1) 10/05/17 06:20 RBC 4.02 M/mcL (4.19-5.50) L 10/05/17 06:20 Hgb 11.6 g/dL (12.9-16.9) L 10/05/17 06:20 Hct 35.4 % (37.5-50.1) L 10/05/17 06:20 MCV 88.1 fL (83.0-100.0) 10/05/17 06:20 MCH 28.9 pg (28.0-33.3) 10/05/17 06:20 MCHC 32.8 g/dL (31.6-35.5) 10/05/17 06:20 RDW 13.0 % (11.5-14.5) 10/05/17 06:20 Plt Count 431 K/mcL (140-400) H 10/05/17 06:20 MPV 8.9 fL (9.4-12.4) L 10/05/17 06:20 Immature Gran % 1.2 % (0-4) 10/05/17 06:20 Seg Neutrophils % 69.3 % 10/05/17 06:20 Lymphocytes % 16.9 % 10/05/17 06:20 Monocytes % 7.6 % 10/05/17 06:20 Eosinophils % 4.6 % 10/05/17 06:20 Basophils % 0.4 % 10/05/17 06:20 Neutrophils # 6.4 K/mcL (1.6-8.9) 10/05/17 06:20 Lymphocytes # 1.6 K/mcL (0.6-4.6) 10/05/17 06:20 Monocytes # 0.7 K/mcL (0.0-1.3) 10/05/17 06:20 Eosinophils # 0.4 K/mcL (0.0-0.6) 10/05/17 06:20 Basophils # 0.0 K/mcL (0.0-0.2) 10/05/17 06:20 ESR >= 130 mm/hr (0-10) H 10/02/17 04:21 Sodium 134 mEq/L (136-145) L 10/04/17 04:45 Potassium 4.6 mEq/L (3.5-5.1) 10/04/17 04:45 Chloride 100 mEq/L (98-107) 10/04/17 04:45 Carbon Dioxide 26 mEq/L (23-29) 10/04/17 04:45 BUN 19 mg/dL (8-23) 10/04/17 04:45 Creatinine 1.10 mg/dL (0.70-1.30) 10/04/17 04:45 Est GFR ( Amer) > 60 (> 60) 10/04/17 04:45 Est GFR (Non-Af Amer) > 60 (> 60) 10/04/17 04:45 BUN/Creatinine Ratio 17 (6-26) 10/04/17 04:45 Glucose 113 mg/dL (70-105) H 10/04/17 04:45 Calculated Osmolality 281 (280-300) 10/04/17 04:45 Calcium 9.0 mg/dL (8.6-10.3) 10/04/17 04:45 C-Reactive Protein 184 mg/L (Less than 10) H 01/31/18 04:21 Vancomycin Trough 15.2 mcg/mL (10-20) 10/04/17 19:[address] 10/04/17 17:47 IMPRESSION: 1. Rim enhancing fluid collection centered within the right gluteus muscle posterior to the right greater trochanter measuring approximately 1.0 x 4.2 x 5.1 cm most compatible with abscess. There is somewhat indistinct appearance of the surrounding right gluteus musculature suggestive of myositis. 2. Subcutaneous edema and skin thickening of the right lateral soft tissues compatible with cellulitis. There is also somewhat confluent fluid within the subcutaneous fat laterally measuring approximately 1.6 x 2.5 x 3.0 cm also concerning for abscess. 3. Status post right hip arthroplasty with no evidence for periprosthetic fracture. No suspicious periosteal changes. D/ / Toney Guardado MD / Toney Guardado MD Interpreting Provider: Toney Guardado MD - Imaging EKG: image reviewed (70bpm SR) Anesthesia Exam Vital Signs Temp Pulse Resp BP Pulse Ox 10/05/17 08:07 97.7 F 81 16 134/79 96 10/05/17 06:00 97.5 F L 84 14 121/75 98 10/05/17 00:41 98.1 F 88 12 114/71 95 10/04/17 21:02 98.1 F 84 14 142/84 96 10/04/17 20:00 97 10/04/17 15:08 97.8 F 86 18 133/81 97 10/04/17 11:46 98.2 F 91 18 130/76 96 Intake and Output 10/04/17 10/05/17 10/05/17 23:59 07:59 15:59 Intake Total 550 / 550 100 / 100 0 / 0 Output Total 100 / 100 Balance 550 / 550 0 / 0 0 / 0 Intake: IV Fluids 350 / 350 100 / 100 Zosyn 3.375 GM In 0.9 % Sodium 100 / 100 100 / 100 Chloride 100 ML @ 25 mls/hr IVPB Q8H ROMANA Rx#:[id number] Vancocin 1,500 MG In Dextrose 5 250 / 250 % 250 ML @ 166.667 mls/hr IVPB Q12H ROMANA Rx#:[id number] Oral 200 / 200 0 / 0 Output: Urine 100 / 100 Other: # Voids 1 Height: 6' Weight: 212# BMI = 29 NPO (# of Hours): MNoc - HEENT Pupil (Motor): Pupils equal, EOMI Mallampati: II Teeth: Normal, Missing Oral Opening: Greater than 3 - DELIMBER OPERATOR LOC: Oriented DELIMBER OPERATOR Motor: Normal RUE, Normal LUE, Normal RLE, Normal LLE, Normal Face DELIMBER OPERATOR Sensory: Normal: RUE, LUE, RLE, LLE, Face - Cardiac Rhythm: Regular Murmur: None - Pulmonary Breath Sounds: bilateral Clear Respiratory Effort: Symmetrical Anesthesia Assess/Plan ASA Score: 2 Modified [place] Scale for Level of Consciousness: Cooperative, oriented, and tranquil Anesthetic Plan: Regional, MAC (Spinal w/ MAC) Monitoring Plan: Standard Monitors Recovery Plan: PACU Anes Supervising Prov Stmt: Pt seen/evaluated, r&B Discussed, questions answered and consent obtained. Mikhail Farmer MD
[2017-10-05] MEDS ORDERED: Lidocaine -MPF 2% 2 ML VIAL ONE (10:38)
[2017-10-05] MEDS ORDERED: *HR* FentaNYL (PF) 100 MCG/2 ML VIAL ONE (10:38)
[2017-10-05] MEDS ORDERED: *HR* Midazolam HCl 2 MG/2 ML VIAL ONE (10:39)
[2017-10-05] MEDS ORDERED: *HR* Propofol 200 MG/20 ML VIAL IVP ONE (10:40)
[2017-10-05] MEDS ORDERED: Ethanol\\Acetic Acid\\Na Ace\\Ben 1,000 ML IRRIG.SOLN IR ONE (10:40)
[2017-10-05] MEDS ORDERED: Ketamine *HR* 500 MG/10 ML MDV ONE (10:45)
[2017-10-05] MEDS ORDERED: Metoclopramide 10 MG/2 ML VIAL ONE (10:45)
[2017-10-05] MEDS ORDERED: Acetaminophen IV 1,000 MG/100 ML INFUS..BTL ONE (10:45)
[2017-10-05] MEDS ORDERED: *HR* Morphine Sulfate/PF 10 MG/10 ML AMPUL ONE (10:45)
[2017-10-05] MEDS ORDERED: Famotidine 20 MG/2 ML VIAL ONE (10:46)
[2017-10-05] MEDS ORDERED: Tetracaine/PF 20 MG/2 ML AMPUL ONE (10:47)
[2017-10-05] MEDS ORDERED: Propofol 500 MG/50 ML INFUS..BTL ONE (11:26)
[2017-10-05] MEDS ORDERED: Naloxone 0.4 MG/ML INJ IVP PRN ×2 (12:42→15:12)
[2017-10-05] MEDS ORDERED: Ondansetron 4 MG/2 ML VIAL IVP PRN ×2 (12:42→15:12)
[2017-10-05] MEDS ORDERED: *HR* OxyCODONE/APAP 5/325 TABLET PO PRN (12:42)
[2017-10-05] MEDS ORDERED: Ibuprofen 400 MG TABLET PO PRN ×2 (12:42→15:12)
[2017-10-05] MEDS ORDERED: *HR* Magnesium Sulfate 1 GM/2 ML VIAL ONE (13:09)
--- NOTE | 2017-10-05 14:47 | Operative Note ---
Date of procedure: 10/05/17 Pre-op diagnosis: Right total hip arthroplasty with postop wound infection Post-op diagnosis: same Procedure: Right total hip arthroplasty incision and drainage of abscess, replacement of femoral head with polyethylene liner Anesthesia: spinal Surgeon: Mihai Gates Was there an special education assistant present: No Estimated blood loss (cc): 100 Specimen: Superficial and deep cultures Condition: stable Disposition: PACU Procedure in Detail: The patient was brought to the operating room, sign in was performed. He was then transferred to the OR table in supine position. He received spinal anesthesia. The patient was positioned in the left lateral decubitus position, supported by pelvic supports. Bony prominences of the left lower extremity were well padded. The right lower extremity was then prepped and draped in usual sterile fashion. A timeout was performed. The patient had purulent drainage coming from the anterior aspect of the wound. I sharply made an incision through the old surgical posterior lateral scar, excising the skin edges on the anterior half of the wound. The deeper subcutaneous tissue was spread apart and a pocket of pus was encountered. Cultures for aerobic and anaerobic were taken. The wound edges were sharply debrided with a scalpel and sharp curette, exposing the gluteal fascia. The PDS suture was all removed. The wound was copiously irrigated with 3 L of normal saline. After further debridement, we then soaked the open wound and exposed fascia with Irrisept, along to soak for at least 2 minutes. The level of the greater trochanter was palpated. The hip abductor was bluntly split by finger dissection, removing the remaining suture and then sharply split in line with its fibers with a curved Hassan scissors, incising the fascia over the gluteus brisa also. The Charnley retractors were then positioned, making sure all not to go too deeply, to protect the sciatic nerve. Posterior to the greater trochanter, there was dirty-appearing turbid fluid, not quite paula pus as above muscle. This was irrigated with normal saline. The total hip was dislocated. Using a sharp impacted the femoral head was then knocked off, breaking the Foss taper. Head and polyethylene liner were removed. The wounds irrigated with normal send once again. We then soaked the cavity with Irrisept for 2 more minutes. The acetabular implant was noted to be in good position with no signs of loosening. The joint cavity and implants were then irrigated with 1000 mL of Bactishure. A new femoral head component with the polyliner was assembled on the back table and then impacted onto the stem. The hip joint was then relocated. Stability was checked along with leg length, it was felt that the leg length was equal, the patient had good extension of the right lower extremity, is able to flex the hip, adduct, and internally rotated up to 60 degrees before the hip started subluxing out. I then irrigated the joint with 3 L of normal saline. The hip abductor fascia and gluteus expose fascia was then closed with #2 Strattafix PDS suture. A Wesley-Crews drain was then placed, entering proximally and inferiorly to the wound. The deep fascia was closed over with # 2 PDS running suture followed by 0 PDS, 2-0 PDS and finally skin willy. Sterile dressings were applied. The Wesley-Crews bulb was attached. A hip abduction wedge was placed between the patient's legs. He was then rolled over into supine position and transferred back onto the hospital bed where he was taken to the recovery room in stable condition.
[2017-10-05] MEDS ORDERED: Sennosides 8.6 MG TABLET PO PRN (15:12)
[2017-10-05] MEDS ORDERED: Ringers Solution, Lactated 1,000 ML IVC SCH (15:12)
[2017-10-05] MEDS ORDERED: MOM Conc 10 ML UD.LIQ PO PRN (15:12)
[2017-10-05] MEDS ORDERED: Temazepam 15 MG CAPSULE PO PRN (15:12)
[2017-10-05] MEDS ORDERED: Acetaminophen 325 MG TABLET PO PRN (15:12)
--- NOTE | 2017-10-05 15:46 | Anesthesia Procedures ---
Date of Encounter: 10/05/17 Time of Encounter: 11:15 Procedures: Anesthesia - Epidural/Spinal Patient ID/Chart reviewed: Yes Patient examined: Yes Consent Obtained: Yes Supplemental Oxygen: None/Room Air Sedation: Versed (mg): 2 Sedation: Fentanyl (mcg): 100 (Not fentanyl - 100mg Ketamine) Site Prep: Aseptic Technique, 0.5% Chlorhexidine/Alcohol Patient position: upright Local Anesthetic: Lidocaine 1% Amount of Local Anesthetic used: 30 (mg) Interspace Used: L2-L3 Spinal Needle Gauge: 25 Spinal Dose: Tetracaine 12mg + 200mcg Duramorph Procedure: Sterile P&D. Landmarks identified. 3cc x 1% Lido local. 25G Pencar midline apprach via introducer.+ CSF. 1.2mL TEtracaine [12mg] + 200mcg Duramorph delivered after good birefringent swirl. Good, monteiro set up. Pt tolerated procedure well and comfortable at procedural start. NO immediate complications. Mikhail Farmer MD
--- NOTE | 2017-10-05 16:08 | Anesthesia Evaluation Post Op ---
Date of Encounter: 10/05/17 Time of Encounter: 14:25 - Vital Signs Vital Signs: Vital Signs/O2 Sat/Glucose, Most Current Temp Pulse Resp BP Pulse Ox 10/05/17 14:15 97.1 F L 65 16 130/76 96 10/05/17 14:05 97.1 F L 65 14 116/80 95 10/05/17 13:55 97.1 F L 60 14 123/82 95 10/05/17 13:45 64 16 131/72 97 10/05/17 13:35 66 14 133/86 94 10/05/17 13:25 97.3 F L 66 16 136/87 98 - Lungs Lungs: Clear Ascult./Percussion - Airway Airway: Non-obstructed - Cardiovascular Regular Rate - Mental Status Mental Status: Alert & Oriented, Answers Appropriately - Pain Pain Scale: 2 (hip burning) Pain Scale used: Numeric (1 - 10) - Nausea Vomiting Nausea Vomiting: Not Present - Hydration Hydration: Ice chips, Arroyo catheter - Discharge PostOp Status: Transfer Patient to floor Anes Supervising Prov Stmt: Pt seen/evaluated, VSS And pt has met criteria for discharge to home. - MD Darian
[2017-10-05] MEDS: Ascorbic Acid 500 MG TABLET PO SCH (16:09)
--- NOTE | 2017-10-05 16:58 | Internal Med Progress Note ---
Date of Encounter: 10/05/17 Time of Encounter: 16:58 - Assessment and plan (1) Abscess of hip, right Current Visit: Yes Status: Acute Assessment and plan: POD #0 s/p I&D and JACKIE, doing well. Cultures obtained during operation. Will follow-up Continue Vancomycin/Zosyn ID following (2) HLD (hyperlipidemia) Current Visit: Yes Status: Acute Qualifiers: Hyperlipidemia type: unspecified Qualified Code(s): E78.5 - Hyperlipidemia , unspecified (3) HTN (hypertension) Current Visit: Yes Status: Acute Qualifiers: Hypertension type: essential hypertension Qualified Code(s): I10 - Essential (primary) hypertension (4) DVT prophylaxis Current Visit: Yes Status: Acute - Subjective Interval history: Initially went for I&D and Right total hip arthroplasty revision and drains placed. He is in room now doing well. No complaints outside of typical post- operative pain. He denies fevers/chills, n/v. - Constitutional Vitals: Temp Pulse Resp BP Pulse Ox 97.8 F 79 16 131/75 97 10/05/17 16:29 10/05/17 16:29 10/05/17 16:29 10/05/17 16:29 10/05/17 16:29 General appearance: Present: cooperative, A&O X 3, no acute distress, answers questions appropriately - Head Head exam: Present: atraumatic, normocephalic - Eye Eye exam: Present: PERRL, conjuntiva pink, sclera anicteric Pupils: Present: PERRL - Neck Neck exam general surgery: Present: supple, trachea midline. Absent: lymphadenopathy - Respiratory Respiratory exam: Present: CTAB. Absent: accessory muscle use, rales, rhonchi, wheezes - Cardiovascular Cardiovascular exam: Present: RRR, +S1, +S2. Absent: diastolic murmur, gallop, rubs, systolic murmur - GI/Abdominal GI/Abdominal exam: Present: normal bowel sounds, soft, no peritoneal signs. Absent: distended, tenderness - Extremities Exam Extremities exam: Present: warm, radial pulses palpable and symmetrical. Absent : calf tenderness, cyanotic, pedal edema Additional comments: Rigth hip post surgical dressing is clean dry and intact. Drains in place. - Neurological Exam Neurological exam: Present: CN II-XII intact, oriented X3, no focal deficits. Absent: pronater drift, facial droop, speech deficit - Skin Skin exam: Present: dry, intact Internal Medicine: Result - Labs CBC & Chem 7: 10/05/17 06:20 10/04/17 04:45 Labs: Short CBC 10/05/17 Range/Units 06:20 WBC 9.2 (4.3-11.1) K/mcL Hgb 11.6 L (12.9-16.9) g/dL Hct 35.4 L (37.5-50.1) % Plt Count 431 H (140-400) K/mcL Neutrophils # 6.4 (1.6-8.9) K/mcL - Impressions Impressions Hip CT 10/04/17 17:47 IMPRESSION: 1. Rim enhancing fluid collection centered within the right gluteus muscle posterior to the right greater trochanter measuring approximately 1.0 x 4.2 x 5.1 cm most compatible with abscess. There is somewhat indistinct appearance of the surrounding right gluteus musculature suggestive of myositis. 2. Subcutaneous edema and skin thickening of the right lateral soft tissues compatible with cellulitis. There is also somewhat confluent fluid within the subcutaneous fat laterally measuring approximately 1.6 x 2.5 x 3.0 cm also concerning for abscess. 3. Status post right hip arthroplasty with no evidence for periprosthetic fracture. No suspicious periosteal changes. D/ / Toney Guardado MD / Toney Guardado MD Interpreting Provider: Toney Guardado MD Hip X-Ray 10/05/17 00:00 IMPRESSION: Left hip arthroplasty in satisfactory alignment. Osseous fragment is seen inferior to the arthroplasty neck which may represent possible periprosthetic fracture. The findings were sent to the Radiology Results [facility] at 2:14 pm on 10/05/2017to be communicated to a licensed caregiver. D/ / Lita Warren MD / Lita Warren MD Interpreting Provider: Lita Warren MD - VTE Documentation of Mechanical Device: Intermittent pneumatic compression device Consult Discharge Plan - Plan Referrals: Clarisa Torres, MAEVE [Primary Care Provider] -
[2017-10-06] MEDS: *HR* OxyCODONE Immed Rel 5 MG TABLET PO PRN ×5 (01:22→23:47)
[2017-10-06 04:42] LABS: Basophils % 0.2 %; Eosinophils # 0.4 K/mcL (0.0-0.6); Eosinophils % 3.1 %; Hematocrit 33.3 % (37.5-50.1); Immature Granulocytes % 0.8 % (0-4); Lymphocytes # 1.4 K/mcL (0.6-4.6); Lymphocytes % 11.7 %; Mean Corpuscular Volume 87.9 fL (83.0-100.0); Mean Platelet Volume 8.8 fL (9.4-12.4); Monocytes # 0.8 K/mcL (0.0-1.3); Neutrophils # 8.9 K/mcL (1.6-8.9); Platelet Count 407 K/mcL (140-400); Red Blood Count 3.79 M/mcL (4.19-5.50); Red Cell Distribution Width 13.1 % (11.5-14.5); Segmented Neutrophils % 77.2 %
[2017-10-06 05:02] LABS: BUN/Creatinine Ratio 15 (6-26); Blood Urea Nitrogen 17 mg/dL (8-23); Calcium 8.6 mg/dL (8.6-10.3); Carbon Dioxide 27 mEq/L (23-29); Chloride 101 mEq/L (98-107); Glucose 101 mg/dL (70-105); Osmolality,Calculated 280 (280-300); Potassium 4.4 mEq/L (3.5-5.1); Sodium 134 mEq/L (136-145); eGFR For African Americans > 60 (> 60); eGFR For Non-African Americans > 60 (> 60)
[2017-10-06] MEDS: Multivit/Ca/Min/Fe/FA 1 TAB TABLET PO SCH (08:33)
[2017-10-06] MEDS: Ascorbic Acid 500 MG TABLET PO SCH ×2 (08:33→16:26)
[2017-10-06] MEDS: Vancomycin 1,500 MG in D5% in Water 250 ML IVPB SCH ×2 (08:35→20:23)
--- NOTE | 2017-10-06 12:19 | Orthopedics Progress Note ---
Date of Encounter: 10/06/17 Time of Encounter: 12:15 Subjective Principal diagnosis: Right total hip arthroplasty infection Interval history: Patient states he is doing well with minimal pain History of his own therapy, is also refused Lovenox and SCDs Physical exam: Right hip dressings clean dry intact BETHANIE drain place with serosanguineous fluid Bilateral calves are soft and nontender Neurovascular intact distally Cultures: Gram-positive cocci Drain: 20 mL drained during last shift Assessment possibly in 1 status post right total hip arthroplasty I&D w/ poly/ head exchange plan: We will switch to aspirin for DVT prophylaxis Continue IV antibiotics, final cultures are still pending He will continue doing his therapy exercises Objective Vital signs: Vital Signs Temp Pulse Resp BP Pulse Ox 10/06/17 05:17 98.4 F 83 16 113/72 95 10/05/17 23:58 98.3 F 84 15 119/77 93 10/05/17 19:28 98.0 F 91 15 138/88 96 10/05/17 17:30 87 16 152/87 97 10/05/17 16:29 97.8 F 79 16 131/75 97 10/05/17 15:45 97.6 F 79 16 138/85 96 10/05/17 15:10 97.3 F L 74 16 133/83 97 10/05/17 14:15 97.1 F L 65 16 130/76 96 10/05/17 14:05 97.1 F L 65 14 116/80 95 10/05/17 13:55 97.1 F L 60 14 123/82 95 10/05/17 13:45 64 16 131/72 97 10/05/17 13:35 66 14 133/86 94 10/05/17 13:25 97.3 F L 66 16 136/87 98 Intake and Output 10/05/17 10/06/17 10/06/17 23:59 07:59 15:59 Intake Total 450 / 450 100 / 100 Output Total 1420 / 1420 620 / 620 200 / 200 Balance -970 / -970 -520 / -520 -200 / -200 Intake: IV Fluids 350 / 350 100 / 100 Zosyn 3.375 GM In 0.9 % Sodium 100 / 100 100 / 100 Chloride 100 ML @ 25 mls/hr IVPB Q8H [facility] Rx#:[id number] Vancocin 1,500 MG In Dextrose 5 250 / 250 % 250 ML @ 166.667 mls/hr IVPB Q12H [facility] Rx#:[id number] Oral 100 / 100 Output: Urine 200 / 200 200 / 200 Other 30 / 30 Catheter 1300 / 1300 400 / 400 Wound Drainage 20 / Right Hip Other: Meal Dinner Percent of Meal Consumed 100% Stool Consistency soft Stool Color Brown # Voids 0 # Bowel Movements 1 - Labs CBC & BMP: 10/06/17 04:27 10/06/17 04:27 Labs: Abnormal lab results WBC 11.5 K/mcL (4.3-11.1) H 10/06/17 04:27 RBC 3.79 M/mcL (4.19-5.50) L 10/06/17 04:27 Hgb 11.0 g/dL (12.9-16.9) L 10/06/17 04:27 Hct 33.3 % (37.5-50.1) L 10/06/17 04:27 Plt Count 407 K/mcL (140-400) H 10/06/17 04:27 MPV 8.8 fL (9.4-12.4) L 10/06/17 04:27 ESR >= 130 mm/hr (0-10) H 10/02/17 04:21 Sodium 134 mEq/L (136-145) L 10/06/17 04:27 C-Reactive Protein 184 mg/L (Less than 10) H 10/02/17 04:21 - VTE Documentation of Mechanical Device: Intermittent pneumatic compression device Consult Discharge Plan - Plan Referrals: Clarisa Torres, [employer] [Primary Care Provider] -
--- NOTE | 2017-10-06 16:14 | Internal Med Progress Note ---
Date of Encounter: 10/06/17 Time of Encounter: 16:12 - Assessment and plan (1) Abscess of hip, right Current Visit: Yes Status: Acute Assessment and plan: POD #0 s/p I&D and JACKIE, doing well. Cultures obtained during operation. Will follow-up Continue Vancomycin/Zosyn ID following Prelim culture has gram positive cocci Await sensitivities (2) HLD (hyperlipidemia) Current Visit: Yes Status: Acute Qualifiers: Hyperlipidemia type: unspecified Qualified Code(s): E78.5 - Hyperlipidemia , unspecified (3) HTN (hypertension) Current Visit: Yes Status: Acute Qualifiers: Hypertension type: essential hypertension Qualified Code(s): I10 - Essential (primary) hypertension (4) DVT prophylaxis Current Visit: Yes Status: Acute Assessment and plan: Lovenox 40 sq - Subjective Interval history: Initially went for I&D and Right total hip arthroplasty revision and drains placed. He is in room now doing well. Pain 6/10 managed good with pain medication. Denies fevers/chills, n/v - Constitutional Vitals: Temp Pulse Resp BP Pulse Ox 98.8 F 88 16 127/80 93 10/06/17 12:22 10/06/17 12:22 10/06/17 12:22 10/06/17 12:22 10/06/17 12:22 General appearance: Present: cooperative, A&O X 3, no acute distress, answers questions appropriately Exam: - Head Head exam: Present: atraumatic, normocephalic - Eye Eye exam: Present: PERRL, conjuntiva pink, sclera anicteric Pupils: Present: PERRL - Neck Neck exam general surgery: Present: supple, trachea midline. Absent: lymphadenopathy - Respiratory Respiratory exam: Present: CTAB. Absent: accessory muscle use, rales, rhonchi, wheezes - Cardiovascular Cardiovascular exam: Present: RRR, +S1, +S2. Absent: diastolic murmur, gallop, rubs, systolic murmur - GI/Abdominal GI/Abdominal exam: Present: normal bowel sounds, soft, no peritoneal signs. Absent: distended, tenderness - Extremities Exam Extremities exam: Present: warm, radial pulses palpable and symmetrical. Absent : calf tenderness, cyanotic, pedal edema Additional comments: Rigth hip post surgical dressing is clean dry and intact. Drains in place. - Neurological Exam Neurological exam: Present: CN II-XII intact, oriented X3, no focal deficits. Absent: pronater drift, facial droop, speech deficit - Skin Skin exam: Present: dry, intact Internal Medicine: Result - Labs CBC & Chem 7: 10/06/17 04:27 10/06/17 04:27 Labs: Short CBC 10/06/17 Range/Units 04:27 WBC 11.5 H (4.3-11.1) K/mcL Hgb 11.0 L (12.9-16.9) g/dL Hct 33.3 L (37.5-50.1) % Plt Count 407 H (140-400) K/mcL Neutrophils # 8.9 (1.6-8.9) K/mcL BMP 10/06/17 04:27 Sodium 134 L Potassium 4.4 Chloride 101 Carbon Dioxide 27 BUN 17 Creatinine 1.13 Glucose 101 Calcium 8.6 - VTE Documentation of Mechanical Device: Intermittent pneumatic compression device Consult Discharge Plan - Plan Referrals: Clarisa Torres [employer] COMM[employer]ICATIONS MAINTAINER [Primary Care Provider] -
[2017-10-06] MEDS ORDERED: *HR* Enoxaparin 30 MG/0.3 ML SYRINGE SQ SCH (18:00)
[2017-10-06] MEDS: Aspirin 325 MG TABLET PO SCH (20:24)
[2017-10-07] MEDS: *HR* OxyCODONE Immed Rel 5 MG TABLET PO PRN ×5 (04:11→22:07)
[2017-10-07 04:20] LABS: Basophils # 0.1 K/mcL (0.0-0.2); Basophils % 0.5 %; Eosinophils # 0.4 K/mcL (0.0-0.6); Hematocrit 31.6 % (37.5-50.1); Hemoglobin 10.5 g/dL (12.9-16.9); Lymphocytes # 1.7 K/mcL (0.6-4.6); Lymphocytes % 16.1 %; Mean Corpuscular HGB Conc 33.2 g/dL (31.6-35.5); Mean Corpuscular Hemoglobin 29.1 pg (28.0-33.3); Mean Corpuscular Volume 87.5 fL (83.0-100.0); Mean Platelet Volume 8.9 fL (9.4-12.4); Monocytes % 9.2 %; Neutrophils # 7.3 K/mcL (1.6-8.9); Platelet Count 401 K/mcL (140-400); Red Blood Count 3.61 M/mcL (4.19-5.50); Red Cell Distribution Width 12.9 % (11.5-14.5); Segmented Neutrophils % 69.2 %
[2017-10-07 04:51] LABS: Calcium 8.7 mg/dL (8.6-10.3)
--- NOTE | 2017-10-07 06:48 | Orthopedics Progress Note ---
Date of Encounter: 10/07/17 Time of Encounter: 06:47 Subjective Principal diagnosis: Right total hip arthroplasty infection Interval history: Patient was seen this morning doing well without complaints. Afebrile vital signs stable. Operative extremity: Neurovascularly intact Dressing clean dry and intact Calves nontender Assessment and plan: Continue with postoperative care preoperative cultures show gram-positive cocci, awaiting intraoperative cultures continue IV antibiotics we will DC BETHANIE drain Objective Vital signs: Vital Signs Temp Pulse Resp BP Pulse Ox 10/07/17 00:02 98.0 F 80 14 128/77 96 10/06/17 21:19 99.6 F 83 16 150/90 94 10/06/17 15:52 99.4 F 89 16 115/78 94 10/06/17 12:22 98.8 F 88 16 127/80 93 Intake and Output 10/06/17 10/06/17 10/07/17 15:59 23:59 07:59 Intake Total 850 / 850 100 / 100 Output Total 410 / 410 15 / 15 210 / 210 Balance -410 / -410 835 / 835 -110 / -110 Intake: IV Fluids 700 / 700 100 / 100 Zosyn 3.375 GM In 0.9 % Sodium 200 / 200 100 / 100 Chloride 100 ML @ 25 mls/hr IVPB Q8H [facility] Rx#:[id number] Vancocin 1,500 MG In Dextrose 5 500 / 500 % 250 ML @ 166.667 mls/hr IVPB Q12H [facility] Rx#:[id number] Oral 150 / 150 Output: Urine 400 / 400 200 / 200 Other 5 / 5 Wound Drainage Right Hip Other: Meal Lunch Percent of Meal Consumed 100% Stool Consistency soft Stool Color Brown # Voids 1 1 # Bowel Movements 1 - Labs CBC & BMP: 10/07/17 04:05 10/07/17 04:05 Labs: Abnormal lab results RBC 3.61 M/mcL (4.19-5.50) L 10/07/17 04:05 Hgb 10.5 g/dL (12.9-16.9) L 10/07/17 04:05 Hct 31.6 % (37.5-50.1) L 10/07/17 04:05 Plt Count 401 K/mcL (140-400) H 10/07/17 04:05 MPV 8.9 fL (9.4-12.4) L 10/07/17 04:05 ESR >= 130 mm/hr (0-10) H 10/02/17 04:21 Sodium 134 mEq/L (136-145) L 10/07/17 04:05 Creatinine 1.58 mg/dL (0.70-1.30) H 10/07/17 04:05 Est GFR ( Amer) 53 (> 60) L 10/07/17 04:05 Est GFR (Non-Af Amer) 44 (> 60) L 10/07/17 04:05 C-Reactive Protein 138 mg/L (Less than 10) H 10/07/17 04:05 - VTE Documentation of Mechanical Device: Intermittent pneumatic compression device Consult Discharge Plan - Plan Referrals: Clarisa Torres, [employer] [Primary Care Provider] -
[2017-10-07] MEDS: Aspirin 325 MG TABLET PO SCH ×2 (08:11→20:39)
[2017-10-07] MEDS: Multivit/Ca/Min/Fe/FA 1 TAB TABLET PO SCH (08:11)
[2017-10-07] MEDS: Ascorbic Acid 500 MG TABLET PO SCH ×2 (08:11→16:06)
[2017-10-07] MEDS: Vancomycin 1,500 MG in D5% in Water 250 ML IVPB SCH (09:01)
--- NOTE | 2017-10-07 11:13 | Infectious Disease Progress No ---
Date of Encounter: 10/07/17 Time of Encounter: 11:12 - Assessment and Plan (1) Sepsis Current Visit: Yes Status: Acute The patient had two SIRS criteria. Likely secondary to right hip cellulitis. No lactic acid was checked. No blood cultures were checked. Improved. WBC has normalized. WBC back up on today's labs. Fuid resuscitation per the primary team. Qualifiers: Sepsis type: sepsis due to unspecified organism Qualified Code(s): A41.9 - Sepsis, unspecified organism (2) Infection of prosthetic hip joint Current Visit: Yes Status: Acute Location: Right hip. Causative organism S. warneri per culture, but concern for additional causative organisms. Failed outpatient oral antibiotics (Augmentin). CT of the hip on 10/02/17 showed findings consistent with cellulitis, but no fluid collection was noted. The surgical wound began draining on . Repeat CT of the hip showed an abscess within the right gluteus muscle posterior to the greater trochanter as well as possible myositis. Additionally, there was also a fluid collection noted within the subcutaneous fat laterally also concerning for abscess. Status post right total hip arthroplasty incision and drainage of abscess with replacement of the femoral head with polyethylene liner. Operative note reviewed. Purulent fluid noted intra-op, but cultures are negative. I spoke with Dr. Gates who states the infection did appear to communicate with the hardware of the hip. Clinically, the patient appears improved. Continue Vancomycin IV. Pharmacy to dose Goal trough ~15. Vanc trough this morning a little elevated at 21. Dose-adjustment per pharmacy. Discontinue Zosyn. Start Rocephin 2 grams IV daily. Add Rifampin 300mg PO BID at discharge. Check baseline LFTs. Duration of treatment depends on the clinical picture, but likely 6 weeks of IV antibiotics followed by orals. Will need weekly CBC, BUN/Cr, ESR, CRP, Vanc trough, and LFTs. Weekly PICC care per protocol. Follow up with ID 10/21/17 at 0900. Qualifiers: Encounter type: initial encounter Qualified Code(s): T84.59XA - Infection and inflammatory reaction due to other internal joint prosthesis, initial encounter; Z96.649 - Presence of unspecified artificial hip joint; Z96.649 - Presence of unspecified artificial hip joint (3) Surgical wound infection Current Visit: Yes Status: Acute Causative organism unclear. Culture grew S. warneri, but unsure if this is a contaminant. Status post incision and drainage of abscess and replacement of femoral head polyethylene liner. Wound care per the ortho team. Continue antibiotics as above. Qualifiers: Encounter type: initial encounter Qualified Code(s): T81.4XXA - Infection following a procedure, initial encounter (4) Cellulitis of right hip Current Visit: Yes Status: Acute Causative organism unclear, but wound culture grew S. warneri. Not sure if this is the actual causative organism or a contaminant. Improved per patient report and it appears to be receding from the skin markings. Continue antibiotics as above. (5) Acute kidney injury Current Visit: Yes Status: Acute Serum creatinine up to 1.5 this morning. Likely secondary to Vanc toxicity. Consider gentle IV hydration. Continue to trend. Dose-adjust antibiotics. Avoid nephrotoxins as able. (6) HLD (hyperlipidemia) Current Visit: Yes Status: Acute Qualifiers: Hyperlipidemia type: unspecified Qualified Code(s): E78.5 - Hyperlipidemia , unspecified (7) HTN (hypertension) Current Visit: Yes Status: Acute Qualifiers: Hypertension type: essential hypertension Qualified Code(s): I10 - Essential (primary) hypertension (8) History of total right hip replacement Current Visit: Yes Status: Acute Status post robotic right total hip replacement 08/23/[address] Cheng. - Subjective Interval history: Patient seen and examined. Weekend notes reviewed. Status post right hip total arthroplasty incision and drainage of abscess and replacement of the femoral head with polyethylene liner. No acute events noted overnight. Patient reports improved pain in the right hip. Denies any fevers or chills or rigors. Denies any chest pain, shortness of breath, or cough. Denies any nausea, vomiting, diarrhea, constipation. He does report loose stool, but not diarrhea. He denies any abdominal pain, urinary complaints, or appetite changes. He denies oral thrush or new skin lesions. Infect Dis PN-Objective Data - Labs CBC & Chem 7: 10/07/17 04:05 10/07/17 04:05 Labs: Laboratory Results - last 24 hr 10/07/17 10/07/17 10/07/17 04:05 04:05 04:05 WBC 10.5 RBC 3.61 L Hgb 10.5 L Hct 31.6 L MCV 87.5 MCH 29.1 MCHC 33.2 RDW 12.9 Plt Count 401 H MPV 8.9 L Immature Gran % 1.0 Seg Neutrophils % 69.2 Lymphocytes % 16.1 Monocytes % 9.2 Eosinophils % 4.0 Basophils % 0.5 Neutrophils # 7.3 Lymphocytes # 1.7 Monocytes # 1.0 Eosinophils # 0.4 Basophils # 0.1 Sodium 134 L Potassium 4.0 Chloride 99 Carbon Dioxide 29 BUN 20 Creatinine 1.58 H Est GFR ( Amer) 53 L Est GFR (Non-Af Amer) 44 L BUN/Creatinine Ratio 13 Glucose 102 Calculated Osmolality 281 Calcium 8.7 C-Reactive Protein 138 H Vancomycin Trough 10/07/17 Unknown WBC RBC Hgb Hct MCV MCH MCHC RDW Plt Count MPV Immature Gran % Seg Neutrophils % Lymphocytes % Monocytes % Eosinophils % Basophils % Neutrophils # Lymphocytes # Monocytes # Eosinophils # Basophils # Sodium Potassium Chloride Carbon Dioxide BUN Creatinine Est GFR ( Amer) Est GFR (Non-Af Amer) BUN/Creatinine Ratio Glucose Calculated Osmolality Calcium C-Reactive Protein Vancomycin Trough 21.1 H* Cultures: Cultures 10/03/17 14:10 Wound Culture - Final Right Hip Staphylococcus warneri 10/05/17 12:07 Wound Culture - Preliminary Right Hip No growth. 10/05/17 12:07 Wound Culture - Preliminary Right Hip No growth. 10/04/17 15:15 Wound Culture - Final Right Hip No growth. 10/04/17 15:15 Gram Stain - Final Right Hip Exam - Constitutional Vitals: Temp Pulse Resp BP Pulse Ox 98.0 F 80 14 128/77 96 10/07/17 00:02 10/07/17 00:02 10/07/17 00:02 10/07/17 00:02 10/07/17 00:02 General appearance: average body habitus, cooperative, no acute distress - Head Head exam: Present: atraumatic, normal inspection, normocephalic - Eye Eye exam: Present: EOMI, normal appearance, PERRL Pupils: Present: normal accommodation - ENT ENT exam: Present: mucous membranes moist - Neck Neck exam: Present: normal inspection - Respiratory Respiratory exam: Present: CTAB. Absent: rales, respiratory distress, rhonchi, wheezes - Cardiovascular Cardiovascular exam: Present: RRR, +S1, +S2 - GI/Abdominal GI/Abdominal exam: Present: normal bowel sounds, soft. Absent: distended, tenderness - Extremities Exam Extremities exam: Present: tenderness (Right posterior hip.). Absent: joint swelling, pedal edema Additional comments: Right posterior hip surgical incision with willy and dressing intact. Erythema minimal. Tenderness noted with palpation of the gluteus. No drainage noted. - Neurological Exam Neurological exam: Present: alert, oriented X3, no focal deficits - Psychiatric Psychiatric exam: Present: normal affect, normal mood - Skin Skin exam: Present: dry, intact, normal color, warm - VTE Documentation of Mechanical Device: Intermittent pneumatic compression device Consult Discharge Plan - Plan Referrals: Clarisa Torres, MAEVE [Primary Care Provider] - Tegan Whittaker CNP [Advanced Practice Nurse] - 10/21/17 9:00 am - Attending Attestation I examined this patient and my medical decision-making was reviewed with the Resident Physician. I agree with the documented findings, disposition and treatment plan as described except to the extent set forth below.
[2017-10-07] MEDS: cefTRIAXone 2,000 MG in Water for inj. (sterile) 20 ML IVP SCH (12:54)
[2017-10-07 13:43] LABS: Albumin 3.2 g/dL (3.5-5.7); Albumin/Globulin Ratio 0.9 (1.1-2.2); Bilirubin,Direct 0.1 mg/dL (0.0-0.2); Bilirubin,Indirect 0.4 mg/dL (0.0-1.2); Bilirubin,Total 0.5 mg/dL (0.3-1.0); Globulin 3.5 g/dL (2.4-3.5); Total Protein 6.7 g/dL (6.4-8.9)
[2017-10-07] MEDS: Vancomycin 1,000 MG in D5% in Water 250 ML IVPB SCH (16:06)
[2017-10-07] MEDS ORDERED: 0.9 % Sodium Chloride 1,000 ML IVC ONE (16:34)
--- NOTE | 2017-10-07 16:38 | Internal Med Progress Note ---
Date of Encounter: 10/07/17 Time of Encounter: 16:35 - Assessment and plan (1) Abscess of hip, right Current Visit: Yes Status: Acute Assessment and plan: s/p I&D and right JACKIE revision, doing well. On vancomycin and now Rocephin (2/5) Wound cultures (2/1): Staphylococcus warneri Surgical wound cultures (2/3) pending Cultures obtained during operation. Will follow-up Continue Vancomycin/Zosyn Await sensitivities Infectious Disease and Orthopedic Surgery following, recommendations appreciated. (2) Acute renal failure Current Visit: Yes Status: Acute Assessment and plan: Likely related to vancomycin toxicity. Will give IV fluid hydration, 1L bolus and increase LR to 100 cc/hr and recheck in AM. -Hold NSAIDs, change DVT prophylaxis from Lovenox to heparin. Qualifiers: Acute renal failure type: unspecified Qualified Code(s): N17.9 - Acute kidney failure, unspecified (3) HLD (hyperlipidemia) Current Visit: Yes Status: Acute Qualifiers: Hyperlipidemia type: unspecified Qualified Code(s): E78.5 - Hyperlipidemia , unspecified (4) HTN (hypertension) Current Visit: Yes Status: Acute Qualifiers: Hypertension type: essential hypertension Qualified Code(s): I10 - Essential (primary) hypertension (5) DVT prophylaxis Current Visit: Yes Status: Acute Assessment and plan: heparin 5000 units BID - Subjective Interval history: Patient had righ hip abscess I&D with right JACKIE revision on 10/05. Doing well. No complaints, no acute events. - Constitutional Vitals: Temp Pulse Resp BP Pulse Ox 98.2 F 90 16 122/80 96 10/07/17 12:33 10/07/17 12:33 10/07/17 12:33 10/07/17 12:33 10/07/17 12:33 General appearance: Present: cooperative, A&O X 3, no acute distress, answers questions appropriately - Head Head exam: Present: atraumatic, normocephalic - Eye Eye exam: Present: PERRL, conjuntiva pink, sclera anicteric Pupils: Present: PERRL - Neck Neck exam general surgery: Present: supple, trachea midline. Absent: lymphadenopathy - Respiratory Respiratory exam: Present: CTAB. Absent: accessory muscle use, rales, rhonchi, wheezes - Cardiovascular Cardiovascular exam: Present: RRR, +S1, +S2. Absent: diastolic murmur, gallop, rubs, systolic murmur - GI/Abdominal GI/Abdominal exam: Present: normal bowel sounds, soft, no peritoneal signs. Absent: distended, tenderness - Extremities Exam Extremities exam: Present: warm, radial pulses palpable and symmetrical. Absent : calf tenderness, cyanotic, pedal edema Additional comments: right hip Drains are gone, incision clean dry in tact - Neurological Exam Neurological exam: Present: CN II-XII intact, oriented X3, no focal deficits. Absent: pronater drift, facial droop, speech deficit - Skin Skin exam: Present: dry, intact Internal Medicine: Result - Labs CBC & Chem 7: 10/07/17 04:05 10/07/17 04:05 Labs: Short CBC 10/07/17 Range/Units 04:05 WBC 10.5 (4.3-11.1) K/mcL Hgb 10.5 L (12.9-16.9) g/dL Hct 31.6 L (37.5-50.1) % Plt Count 401 H (140-400) K/mcL Neutrophils # 7.3 (1.6-8.9) K/mcL BMP 10/07/17 04:05 Sodium 134 L Potassium 4.0 Chloride 99 Carbon Dioxide 29 BUN 20 Creatinine 1.58 H Glucose 102 Calcium 8.7 Liver Function 10/07/17 Range/Units 04:05 Total Bilirubin 0.5 (0.3-1.0) mg/dL Direct Bilirubin 0.1 (0.0-0.2) mg/dL AST 19 (13-39) Units/L ALT 21 (7-52) Units/L Alkaline Phosphatase 70 (34-104) Units/L Albumin 3.2 L (3.5-5.7) g/dL - VTE Documentation of Mechanical Device: Intermittent pneumatic compression device Consult Discharge Plan - Plan Referrals: Tegan Whittaker CNP [Advanced Practice Nurse] - 10/21/17 9:00 am Clarisa Torres CNP [Primary Care Provider] -
[2017-10-07] MEDS: *HR* Heparin 5,000 UNIT/ML VIAL SQ SCH (16:52)
[2017-10-07] MEDS: Ringers Solution, Lactated 1,000 ML IVC SCH (16:57)
[2017-10-08] MEDS: Ringers Solution, Lactated 1,000 ML IVC SCH (04:17)
[2017-10-08] MEDS: Vancomycin 1,000 MG in D5% in Water 250 ML IVPB SCH (05:07)
[2017-10-08] MEDS: *HR* Heparin 5,000 UNIT/ML VIAL SQ SCH (05:08)
[2017-10-08] MEDS: *HR* OxyCODONE Immed Rel 5 MG TABLET PO PRN ×2 (05:09→14:37)
[2017-10-08 05:27] LABS: Basophils % 0.5 %; Eosinophils # 0.4 K/mcL (0.0-0.6); Eosinophils % 4.3 %; Hemoglobin 9.8 g/dL (12.9-16.9); Immature Granulocytes % 0.7 % (0-4); Lymphocytes # 1.7 K/mcL (0.6-4.6); Lymphocytes % 18.7 %; Mean Corpuscular HGB Conc 33.8 g/dL (31.6-35.5); Mean Corpuscular Hemoglobin 28.9 pg (28.0-33.3); Mean Corpuscular Volume 85.5 fL (83.0-100.0); Monocytes # 0.7 K/mcL (0.0-1.3); Monocytes % 8.4 %; Neutrophils # 5.9 K/mcL (1.6-8.9); Platelet Count 394 K/mcL (140-400); Red Blood Count 3.39 M/mcL (4.19-5.50); Segmented Neutrophils % 67.4 %
[2017-10-08 05:44] LABS: BUN/Creatinine Ratio 17 (6-26); Blood Urea Nitrogen 22 mg/dL (8-23); Calcium 8.5 mg/dL (8.6-10.3); Carbon Dioxide 28 mEq/L (23-29); Chloride 102 mEq/L (98-107); Glucose 99 mg/dL (70-105); Osmolality,Calculated 285 (280-300); Potassium 4.1 mEq/L (3.5-5.1); Sodium 136 mEq/L (136-145); eGFR For African Americans > 60 (> 60); eGFR For Non-African Americans 57 (> 60)
--- NOTE | 2017-10-08 06:53 | Orthopedics Progress Note ---
Date of Encounter: 10/08/17 Time of Encounter: 06:52 Subjective Principal diagnosis: Right total hip arthroplasty infection Interval history: Patient was seen this morning doing well without complaints. Afebrile vital signs stable. Operative extremity: Neurovascularly intact Dressing clean dry and intact Calves nontender Assessment and plan: Continue with postoperative care preoperative cultures show unusual staph organism, no culture positive from intraoperative. Plan as per infectious disease but recommend IV antibiotics for 6 weeks. Objective Vital signs: Vital Signs Temp Pulse Resp BP Pulse Ox 10/08/17 03:52 97.7 F 70 16 121/70 98 10/07/17 19:59 97.9 F 73 17 126/73 98 10/07/17 16:51 98.4 F 83 17 123/72 97 10/07/17 12:33 98.2 F 90 16 122/80 96 10/07/17 08:00 98.0 F 91 16 130/81 95 Intake and Output 10/07/17 10/07/17 10/08/17 15:59 23:59 07:59 Intake Total 1974 / 1974 1003 / 1003 Output Total 580 / 580 850 / 850 Balance 1395 / 1395 153 / 153 Intake: IV Fluids 1250 / 1250 1003 / 1003 0.9 % Sodium Chloride 1,000 ML 1000 / 1000 @ 3750 mls/hr IVC .Q16M [facility] Rx# :[id number] Lactated Ringers 1,000 ML @ 100 1003 / 1003 mls/hr IVC .Q10H [facility] Rx#: [id number] Rocephin 2,000 MG In Water for inj. (sterile) 20 ML @ 600 mls/ hr IVP Q24H [facility] Rx#:[id number] Vancocin 1,000 MG In Dextrose 5 250 / 250 % 250 ML @ 167 mls/hr IVPB Q12H [facility] Rx#:[id number] Oral 725 / 725 Output: Urine 580 / 580 850 / 850 Other: # Voids 1 - Labs CBC & BMP: 10/08/17 05:10 10/08/17 05:10 Labs: Abnormal lab results RBC 3.39 M/mcL (4.19-5.50) L 10/08/17 05:10 Hgb 9.8 g/dL (12.9-16.9) L 10/08/17 05:10 Hct 29.0 % (37.5-50.1) L 10/08/17 05:10 MPV 9.0 fL (9.4-12.4) L 10/08/17 05:10 ESR >= 130 mm/hr (0-10) H 10/02/17 04:21 Est GFR (Non-Af Amer) 57 (> 60) L 10/08/17 05:10 Calcium 8.5 mg/dL (8.6-10.3) L 10/08/17 05:10 C-Reactive Protein 138 mg/L (Less than 10) H 10/07/17 04:05 Albumin 3.2 g/dL (3.5-5.7) L 10/07/17 04:05 Albumin/Globulin Ratio 0.9 (1.1-2.2) L 10/07/17 04:05 Vancomycin Trough 21.1 mcg/mL (10-20) H* 10/07/17 Unknown - VTE Documentation of Mechanical Device: Intermittent pneumatic compression device Consult Discharge Plan - Plan Referrals: Tegan Whittaker CNP [Advanced Practice Nurse] - 10/21/17 9:00 am Clarisa Torres CNP [Primary Care Provider] -
[2017-10-08] MEDS: Ascorbic Acid 500 MG TABLET PO SCH (08:18)
[2017-10-08] MEDS: Aspirin 325 MG TABLET PO SCH (08:18)
[2017-10-08] MEDS: Multivit/Ca/Min/Fe/FA 1 TAB TABLET PO SCH (08:18)
--- NOTE | 2017-10-08 08:32 | Discharge Summary ---
Date of Encounter: 10/08/17 Time of Encounter: 08:30 - Discharge Diagnosis (1) Abscess of hip, right Priority: Primary Status: Acute (2) Acute kidney injury Priority: Primary Status: Resolved (3) Cellulitis of right hip Priority: Primary Status: Acute (4) HLD (hyperlipidemia) Priority: Secondary Status: Acute Qualifiers: Hyperlipidemia type: unspecified Qualified Code(s): E78.5 - Hyperlipidemia , unspecified (5) HTN (hypertension) Priority: Secondary Status: Acute Qualifiers: Hypertension type: essential hypertension Qualified Code(s): I10 - Essential (primary) hypertension (6) History of total right hip replacement Priority: Secondary Status: Acute - Discharge Medications Prescriptions: OxyCODONE Immed Rel [Roxicodone 5 MG] 10 mg PO Q6HR PRN 3 Days #12 tablet PRN Reason: Severe pain 7-10 cefTRIAXone [Rocephin] 2,000 mg IVPB DAILY #42 vial Docusate [Colace] 100 mg PO BID PRN #30 capsule PRN Reason: Constipation Vancomycin [Vancocin (wt based)] 1,000 mg IV Q12H 42 Days #84 vial Home Medications: Mv-Mn/FA/Lycopene/Lut/Hb#178 [Bertrand Multivit For Men Caplet] 1 each PO DAILY 09/18 [History] [place]-3/Dha/Epa/Fish Oil [Fish Oil 1,000 mg Softgel] 1,000 mg PO DAILY 10/03/16 [History] Aspirin Enteric Coated [Aspirin EC] 325 mg PO BID #20 tablet. 08/24/17 [Rx] Docusate [Colace] 100 mg PO BID PRN #30 capsule 10/08/17 [Rx] OxyCODONE Immed Rel [Roxicodone 5 MG] 10 mg PO Q6HR PRN 3 Days #12 tablet [Rx] Vancomycin [Vancocin (wt based)] 1,000 mg IV Q12H 42 Days #84 vial 10/08/17 [Rx] cefTRIAXone [Rocephin] 2,000 mg IVPB DAILY #42 vial 10/08/17 [Rx] Allergies/Adverse Reactions: 3 Allergy/AdvReac Type Severity Reaction Status Date / Time shellfish derived Allergy Anaphylaxis Verified 08/22/17 21:27 Date of admission: 10/04/17 15:49 Primary care physician: Clarisa Torres CNP Consults: 09/29/17 17:22 Consult to Orthopedic Surgery [CONS] Routine Consulting Provider: Orthoped[facility] Reason for Consult: cellulitis s/p hip replacement Time Notified: 17:23 Call Completed: No 10/03/17 07:45 Consult to Infectious Diseases [CONS] Routine Consulting Provider: [facility] Reason for Consult: IV antibiotic recommendations - Dr. Cheng to place call Call Completed: No 10/05/17 15:12 Consult to Nurse Navigator [CONS] Routine Comment: ortho navigator Consult to Occupational Therapy [CONS] Routine Comment: Evaluate, develop and implement POC Reason for Consult: total hip replacement Consult to Physical Therapy [CONS] Routine Comment: Evaluate, develop and implement POC Reason for Consult: total hip replacement Consult to Assistant Professor Surgical Technology [CONS] Routine Reason for SW Consult: post op joint replacement RT Post Op Consult [CONS] Routine - Patient Status Disposition: Home, Self-Care Condition: Fair Overall status at discharge: patient is progressing back to baseline - Discharge Instructions Follow Up With: Anthony Cheng MD [Partnered Physician] - 10/15/17 3:00 pm (2 weeks) Tegan Whittaker CNP [Advanced Practice Nurse] - 10/21/17 9:00 am Clarisa Torres CNP [Primary Care Provider] - Additional Instructions: Discharge Instructions: Total Hip Replacement Please call [facility] ([phone]), your Primary Care Physician, or report to the Emergency Room if you have any of the following symptoms: Nausea, vomiting, fever greater that 101.5, swelling, chest pain, shortness of breath, increased pain/redness/drainage/odor for your incision site, numbness/ tingling, or any other concerning symptoms. ACTIVITY:Weight-bearing as tolerated for 8 weeks with hip dislocation precautions that physical therapy taught you. You may progress as tolerated under the guidance of your physical therapist. You do not need to sleep with a pillow between your legs. You can also seep on the operative side or on your stomach. MEDICATIONS: Upon discharge resume your home medications. Take all the medications as prescribed. Take a stool softener if taking narcotic pain medications. Stool softeners are only effective if you drink enough fluids. Drink 6-8 glass of water or fluids a day, unless this is not allowed for another health problem. Despite using stool softeners, if you haven't had a bowel movement in 3 days, please switch to a gentle laxative. Gentle laxatives are sold over the counter. You should have a bowel movement within 24 hours, if not call the office. You will be discharged from the hospital with a prescription for pain medication. You are encouraged to decrease the use of narcotic pain medication as tolerated. Should you require a refill, please call the office. [facility] prescribes narcotic pain medication for only 4-6 weeks after surgery. If you require pain medication beyond this time period, you may be referred to your Primary Care Physician or to the Pain Clinic for further evaluation. Plan ahead for refills on pain medication as many narcotics either need to be picked up at the office or mailed. It is best to call 48-72 hours in advance of needing a prescription refill so you don't run out of medication. To help control the post-operative pain, you may take NSAIDs (Aleve,Advil, Motrin, ibuprofen, naprosyn) or Tylenol as prescribed on the bottle in addition to the pain medication. ANTICOAGULATION (blood thinners): Continue your Aspirin, Lovenox or Coumadin as prescribed to help prevent a blood clot in the leg or in the lungs. As long as your incision remains dry and you tolerate the NSAIDs (Aleve, Advil, Motrin, Ibuprofen, Naprosyn), it is OK to use the NSAIDS while you are taking your anticoagulation medication. Should your incision start to drain, stop the NSAID and contact our office. Common symptoms of blood clot in the legs include: localized pain, swelling, calf tenderness, redness or discoloration of the skin. Blood clot in the lung symptoms include: shortness of breath, rapid pulse, sweating, and chest pain that worsens with deep breathing, coughing up blood, lightheadedness, feelings of anxiety. If you experience any of these symptoms notify your physician immediately, go to the emergency room, or if having trouble breathing, call 911. WOUND CARE: Leave the dressing on for 7 to 10days. You may change the dressing if it is saturated greater than 50%. Do not get the dressing wet at anytime. Wash your hands with antibacterial soap, rinse and dry prior to any wound care. If you have willy the visiting nurse or rehab facility can remove the stapes 10-14 days after surgery and place steri-strips across the wound. Leave the steri-strips in place until they fall off on their own. You may let water from the shower run on top of the steri-strips. If you do not have a visiting nurse or rehab facility, you will need to return to the office at 10-14 days for the willy to be removed. If you have itching or redness around the dressing call the office. FOLLOW-UP: Please follow up with your surgeon in the orthopedic clinic in 6 weeks from the day of surgery. If you have willy that need to be removed, you will need to come back to the office in 10-14 days from the day of surgery. - Diet and Activity Activity: increase activity as tolerated Diet: regular diet Hospital course: Mr. Atwood is a 67 year old male with a past medical history of arthritis, HLD and HTN. He was transferred to [facility] with concern for cellulitis of the right hip surgical incision. He was operated on for right hip arthroplasty back in August 2017 after a fall. He was initially admitted and noted to have leukocytosis and was started on IV antibiotics. Later yesterday started having drainage from his surgical site and a CT showed fluid collection for which she was taken to the OR. He underwent right total hip arthroplasty incision and drainage of the abscess with replacement of femoral head with polyethylene liner. Initial cultures showed Staphylococcus warneri, however intraoperative cultures were negative. ID was seeing the patient and there were not sure exactly which bacteria was reveal as a suspected this might have been a contaminant. He was maintained on IV vancomycin and ceftriaxone and rifampin was discharged on those. He will need 6 weeks of IV antibiotics. The patient was stable for discharge on 10/08/2017 with antibiotics infusion set up. He will need weekly labs. He will follow up with ID and orthopedics and his PCP as an outpatient - Time Spent with Patient Total time spent providing and/or coordinating discharge services: Greater than 30 minutes - Constitutional Vitals: Temp Pulse Resp BP Pulse Ox 98.0 F 74 14 120/78 94 10/08/17 07:12 10/08/17 07:12 10/08/17 07:02 10/08/17 07:12 10/08/17 07:12 General appearance: Present: cooperative, A&O X 3, no acute distress, answers questions appropriately Exam: GEN: NAD CVS: RRR. S1, S2, No m/r/g RESP: CTAB ABD: Soft, NT, ND, +BS EXT: No edema. 2+ DP. No rashes. Right hip incision area with no drainage. No erythema. NEURO: Nonfocal - VTE Documentation of Mechanical Device: Intermittent pneumatic compression device
--- NOTE | 2017-10-08 08:34 | Physician Discharge Referral ---
Home Health/Hosp Referral Info Transfer to: Home Health - Diagnosis (1) Abscess of hip, right Priority: Primary Status: Acute (2) Acute kidney injury Priority: Primary Status: Acute (3) Cellulitis of right hip Priority: Primary Status: Acute (4) HLD (hyperlipidemia) Priority: Secondary Status: Acute (5) HTN (hypertension) Priority: Secondary Status: Acute (6) History of total right hip replacement Priority: Secondary Status: Acute - Respiratory Orders Smoking Cessation: Smoking cessation has been advised. For more information, call the [place] Tobacco Quit Line at 8-772-NXVI-NOW. - Services Needed Following services are medically necessary services: Nursing, Home Health Aide, Home Infusion - Transfer Medications Prescriptions: OxyCODONE Immed Rel [Roxicodone 5 MG] 10 mg PO Q6HR PRN 3 Days #12 tablet PRN Reason: Severe pain 7-10 Docusate [Colace] 100 mg PO BID PRN #30 capsule PRN Reason: Constipation Home Medications: Mv-Mn/FA/Lycopene/Lut/Hb#178 [Bertrand Multivit For Men Caplet] 1 each PO DAILY 09/18 [History] [place]-3/Dha/Epa/Fish Oil [Fish Oil 1,000 mg Softgel] 1,000 mg PO DAILY 10/03/16 [History] Aspirin Enteric Coated [Aspirin EC] 325 mg PO BID #20 tablet. 08/24/17 [Rx] Docusate [Colace] 100 mg PO BID PRN #30 capsule 10/08/17 [Rx] OxyCODONE Immed Rel [Roxicodone 5 MG] 10 mg PO Q6HR PRN 3 Days #12 tablet [Rx] Allergies/Adverse Reactions: 3 Allergy/AdvReac Type Severity Reaction Status Date / Time shellfish derived Allergy Anaphylaxis Verified 08/22/17 21:27 Certification: Further, I certify that my clinical findings support that this patient is homebound (i.e. absences from home require considerable and taxing effort and are for medical reasons or denominational services or infrequently or short duration when for other reasons) because: Homebound Reason: Patient requires assistance of a person or device to safely leave home Attestation: My signature below is to certify that this patient is under my care and that I, or nurse practitioner, or a physician's trust operations assistant working with me, has a face-to -face encounter with this patient.
--- NOTE | 2017-10-08 08:36 | Infectious Disease Progress No ---
Date of Encounter: 10/08/17 Time of Encounter: 08:32 - Assessment and Plan (1) Sepsis Status: Acute The patient had two SIRS criteria. Likely secondary to right hip cellulitis. No lactic acid was checked. No blood cultures were checked. Improved. WBC has normalized. Fuid resuscitation per the primary team. Qualifiers: Sepsis type: sepsis due to unspecified organism Qualified Code(s): A41.9 - Sepsis, unspecified organism (2) Infection of prosthetic hip joint Status: Acute Location: Right hip. Causative organism S. warneri per culture, but concern for additional causative organisms. Failed outpatient oral antibiotics (Augmentin). CT of the hip on 10/02/17 showed findings consistent with cellulitis, but no fluid collection was noted. The surgical wound began draining on . Repeat CT of the hip showed an abscess within the right gluteus muscle posterior to the greater trochanter as well as possible myositis. Additionally, there was also a fluid collection noted within the subcutaneous fat laterally also concerning for abscess. Status post right total hip arthroplasty incision and drainage of abscess with replacement of the femoral head with polyethylene liner. Operative note reviewed. Purulent fluid noted intra-op, but cultures are negative. I spoke with Dr. Gates who states the infection did appear to communicate with the hardware of the hip. Clinically, the patient appears improved. Continue Vancomycin IV. Pharmacy to dose Goal trough ~15. Vanc trough this morning a little elevated at 21. Dose-adjustment per pharmacy. Continue Rocephin 2 grams IV daily. Add Rifampin 300mg PO BID at discharge. Baseline LFTs normal. Duration of treatment depends on the clinical picture, but likely 6 weeks of IV antibiotics followed by orals. Will need weekly CBC, BUN/Cr, ESR, CRP, Vanc trough, and LFTs. Weekly PICC care per protocol. Follow up with ID 10/21/17 at 0900. Qualifiers: Encounter type: initial encounter Qualified Code(s): T84.59XA - Infection and inflammatory reaction due to other internal joint prosthesis, initial encounter; Z96.649 - Presence of unspecified artificial hip joint; Z96.649 - Presence of unspecified artificial hip joint (3) Surgical wound infection Status: Acute Causative organism unclear. Culture grew S. warneri, but unsure if this is a contaminant. Status post incision and drainage of abscess and replacement of femoral head polyethylene liner. Wound care per the ortho team. Continue antibiotics as above. Qualifiers: Encounter type: initial encounter Qualified Code(s): T81.4XXA - Infection following a procedure, initial encounter (4) Cellulitis of right hip Status: Acute Causative organism unclear, but wound culture grew S. warneri. Not sure if this is the actual causative organism or a contaminant. Improved. Continue antibiotics as above. (5) Acute kidney injury Status: Resolved Serum creatinine normalized. Likely secondary to Vanc toxicity. Continue to trend. Avoid nephrotoxins as able. (6) HLD (hyperlipidemia) Status: Acute Qualifiers: Hyperlipidemia type: unspecified Qualified Code(s): E78.5 - Hyperlipidemia , unspecified (7) HTN (hypertension) Status: Acute Qualifiers: Hypertension type: essential hypertension Qualified Code(s): I10 - Essential (primary) hypertension (8) History of total right hip replacement Status: Acute Status post robotic right total hip replacement 08/23/[address] Cheng. - Subjective Interval history: Patient seen and examined. No acute events noted overnight. Patient reports improved pain in the right hip, mainly when sitting. Denies any fevers or chills or rigors. Denies any chest pain, shortness of breath, or cough. Denies any nausea, vomiting, diarrhea, constipation. He does report loose stool, but not diarrhea. He denies any abdominal pain, urinary complaints, or appetite changes. He denies oral thrush or new skin lesions. Infect Dis PN-Objective Data - Labs CBC & Chem 7: 10/08/17 05:10 10/08/17 05:10 Labs: Laboratory Results - last 24 hr 10/07/17 10/07/17 10/08/17 04:05 Unknown 05:10 WBC 8.8 RBC 3.39 L Hgb 9.8 L Hct 29.0 L MCV 85.5 MCH 28.9 MCHC 33.8 RDW 13.0 Plt Count 394 MPV 9.0 L Immature Gran % 0.7 Seg Neutrophils % 67.4 Lymphocytes % 18.7 Monocytes % 8.4 Eosinophils % 4.3 Basophils % 0.5 Neutrophils # 5.9 Lymphocytes # 1.7 Monocytes # 0.7 Eosinophils # 0.4 Basophils # 0.0 Sodium 134 L Potassium 4.0 Chloride 99 Carbon Dioxide 29 BUN 20 Creatinine 1.58 H Est GFR ( Amer) 53 L Est GFR (Non-Af Amer) 44 L BUN/Creatinine Ratio 13 Glucose 102 Calculated Osmolality 281 Calcium 8.7 Total Bilirubin 0.5 Direct Bilirubin 0.1 Indirect Bilirubin 0.4 AST 19 ALT 21 Alkaline Phosphatase 70 Serum Total Protein 6.7 Albumin 3.2 L Globulin 3.5 Albumin/Globulin Ratio 0.9 L Vancomycin Trough 21.1 H* 10/08/17 05:10 WBC RBC Hgb Hct MCV MCH MCHC RDW Plt Count MPV Immature Gran % Seg Neutrophils % Lymphocytes % Monocytes % Eosinophils % Basophils % Neutrophils # Lymphocytes # Monocytes # Eosinophils # Basophils # Sodium 136 Potassium 4.1 Chloride 102 Carbon Dioxide 28 BUN 22 Creatinine 1.26 Est GFR ( Amer) > 60 Est GFR (Non-Af Amer) 57 L BUN/Creatinine Ratio 17 Glucose 99 Calculated Osmolality 285 Calcium 8.5 L Total Bilirubin Direct Bilirubin Indirect Bilirubin AST ALT Alkaline Phosphatase Serum Total Protein Albumin Globulin Albumin/Globulin Ratio Vancomycin Trough Cultures: Cultures 10/05/17 12:07 Wound Culture - Final Right Hip No growth. 10/05/17 12:07 Wound Culture - Final Right Hip No growth. 10/03/17 14:10 Wound Culture - Final Right Hip Staphylococcus warneri 10/04/17 15:15 Wound Culture - Final Right Hip No growth. 10/04/17 15:15 Gram Stain - Final Right Hip Exam - Constitutional Vitals: Temp Pulse Resp BP Pulse Ox 98.0 F 74 14 120/78 94 10/08/17 07:12 10/08/17 07:12 10/08/17 07:02 10/08/17 07:12 10/08/17 07:12 General appearance: average body habitus, cooperative, no acute distress - Head Head exam: Present: atraumatic, normal inspection, normocephalic - Eye Eye exam: Present: EOMI, normal appearance, PERRL Pupils: Present: normal accommodation - ENT ENT exam: Present: mucous membranes moist - Neck Neck exam: Present: normal inspection - Respiratory Respiratory exam: Present: CTAB. Absent: rales, respiratory distress, rhonchi, wheezes - Cardiovascular Cardiovascular exam: Present: RRR, +S1, +S2 - GI/Abdominal GI/Abdominal exam: Present: normal bowel sounds, soft. Absent: distended, tenderness - Extremities Exam Extremities exam: Present: normal inspection, pedal edema (Trace RLE), tenderness (Right posterior hip) Additional comments: Right posterior hip incision with willy intact and dressing intact. Erythema minimal. - Neurological Exam Neurological exam: Present: alert, oriented X3, no focal deficits - Psychiatric Psychiatric exam: Present: normal affect, normal mood - Skin Skin exam: Present: dry, intact, normal color, warm - VTE Documentation of Mechanical Device: Intermittent pneumatic compression device Consult Discharge Plan - Plan Additional Instructions: Discharge Instructions: Total Hip Replacement Please call [facility] ([phone]), your Primary Care Physician, or report to the Emergency Room if you have any of the following symptoms: Nausea, vomiting, fever greater that 101.5, swelling, chest pain, shortness of breath, increased pain/redness/drainage/odor for your incision site, numbness/ tingling, or any other concerning symptoms. ACTIVITY:Weight-bearing as tolerated for 8 weeks with hip dislocation precautions that physical therapy taught you. You may progress as tolerated under the guidance of your physical therapist. You do not need to sleep with a pillow between your legs. You can also seep on the operative side or on your stomach. MEDICATIONS: Upon discharge resume your home medications. Take all the medications as prescribed. Take a stool softener if taking narcotic pain medications. Stool softeners are only effective if you drink enough fluids. Drink 6-8 glass of water or fluids a day, unless this is not allowed for another health problem. Despite using stool softeners, if you haven't had a bowel movement in 3 days, please switch to a gentle laxative. Gentle laxatives are sold over the counter. You should have a bowel movement within 24 hours, if not call the office. You will be discharged from the hospital with a prescription for pain medication. You are encouraged to decrease the use of narcotic pain medication as tolerated. Should you require a refill, please call the office. [facility] prescribes narcotic pain medication for only 4-6 weeks after surgery. If you require pain medication beyond this time period, you may be referred to your Primary Care Physician or to the Pain Clinic for further evaluation. Plan ahead for refills on pain medication as many narcotics either need to be picked up at the office or mailed. It is best to call 48-72 hours in advance of needing a prescription refill so you don't run out of medication. To help control the post-operative pain, you may take NSAIDs (Aleve,Advil, Motrin, ibuprofen, naprosyn) or Tylenol as prescribed on the bottle in addition to the pain medication. ANTICOAGULATION (blood thinners): Continue your Aspirin, Lovenox or Coumadin as prescribed to help prevent a blood clot in the leg or in the lungs. As long as your incision remains dry and you tolerate the NSAIDs (Aleve, Advil, Motrin, Ibuprofen, Naprosyn), it is OK to use the NSAIDS while you are taking your anticoagulation medication. Should your incision start to drain, stop the NSAID and contact our office. Common symptoms of blood clot in the legs include: localized pain, swelling, calf tenderness, redness or discoloration of the skin. Blood clot in the lung symptoms include: shortness of breath, rapid pulse, sweating, and chest pain that worsens with deep breathing, coughing up blood, lightheadedness, feelings of anxiety. If you experience any of these symptoms notify your physician immediately, go to the emergency room, or if having trouble breathing, call 911. WOUND CARE: Leave the dressing on for 7 to 10days. You may change the dressing if it is saturated greater than 50%. Do not get the dressing wet at anytime. Wash your hands with antibacterial soap, rinse and dry prior to any wound care. If you have willy the visiting nurse or rehab facility can remove the stapes 10-14 days after surgery and place steri-strips across the wound. Leave the steri-strips in place until they fall off on their own. You may let water from the shower run on top of the steri-strips. If you do not have a visiting nurse or rehab facility, you will need to return to the office at 10-14 days for the willy to be removed. If you have itching or redness around the dressing call the office. FOLLOW-UP: Please follow up with your surgeon in the orthopedic clinic in 6 weeks from the day of surgery. If you have willy that need to be removed, you will need to come back to the office in 10-14 days from the day of surgery. Referrals: Anthony Cheng MD [Partnered Physician] - 10/15/17 3:00 pm (2 weeks) Tegan Whittaker CNP [Advanced Practice Nurse] - 10/21/17 9:00 am Clarisa Torres CNP [Primary Care Provider] - Prescriptions: OxyCODONE Immed Rel [Roxicodone 5 MG] 10 mg PO Q6HR PRN 3 Days #12 tablet PRN Reason: Severe pain 7-10 cefTRIAXone [Rocephin] 2,000 mg IVPB DAILY #42 vial Docusate [Colace] 100 mg PO BID PRN #30 capsule PRN Reason: Constipation Vancomycin [Vancocin (wt based)] 1,000 mg IV Q12H 42 Days #84 vial - Attending Attestation I examined this patient and my medical decision-making was reviewed with the Resident Physician. I agree with the documented findings, disposition and treatment plan as described except to the extent set forth below.
[2017-10-08 11:04] VITALS: BP 119/80
[2017-10-08] MEDS: cefTRIAXone 2,000 MG in Water for inj. (sterile) 20 ML IVP SCH (14:36)
== END 2017-10-08 14:59 | disposition home or self-care (01) | DRG 466 ==
LOC: INTOOBSV 16:49 → 3NENU 16:49 → 1NENUPED 09-30 10:37 → 3NENU 10-02 13:40
PROVIDERS: ADMIT Internal Medicine; ATTEND Internal Medicine